=== PATIENT | female | born 1995 | race Caucasian/White ===

== ENCOUNTER 2023-06-05 09:25 | Emergency (ER) | payer OTHER, SELFPAY ==
[2023-06-05 09:33] VITALS: BP 121/99; PULSE 76; RESP 18; TEMP 37.1; O2SAT 99; BMI 42.0
--- NOTE | 2023-06-05 09:50 | ED.GENADUL1 ---
HPI - General Adult General Chief complaint: Dizziness Stated complaint: HEADACHE/SORE THROAT/DIZZINESS Time Seen by Provider: 06/05/23 09:35 Source: patient Mode of arrival: walk-in Limitations: no limitations History of Present Illness HPI narrative: The patient presented to us with a sore throat associated with runny nose a frontal headache and nausea and also cough She is presenting to us with her also has similar symptoms the patient already had a COVID test negative at home Related Data Home Medications Medication Instructions Recorded Confirmed hyoscyamine sulfate 0.125 mg 0.125 mg PO Q6H 06/05/23 06/05/23 sublingual tablet Allergies Allergy/AdvReac Type Severity Reaction Status Date / Time No Known Drug Allergies Allergy Verified 06/05/23 09:33 Review of Systems ROS Status of ROS 10 or more systems reviewed and unremarkable except as noted in history and below PFSH PFS Social History Smoking status: Never smoker Exam Narrative Exam Narrative: Nurses notes and vital signs reviewed and patient is not hypoxic. General: Well-appearing and in no apparent distress. Skin: Warm, dry, no pallor noted. No rash. Head: Normocephalic, atraumatic. Neck: Supple, non-tender. Eye: Pupils are equal, round and EOMI. No scleral icterus. Ears, Nose, Mouth, and Throat: TM are clear, no nasal mucosal hypertrophy. Oral mucosa is moist, no posterior oropharynx erythema, uvula is mid-line Cardiovascular: Regular Rate and Rhythm without murmur, gallop or rub. Respiratory: No accessory muscle use or respiratory distress. Lungs are clear to auscultation, no wheezing, rales or rhonchi Chest Wall: no tenderness Back: No midline thoracic or lumbar vertebral tenderness. No CVA tenderness Musculoskeletal: normal ROM, no calf or popliteal tenderness, no lower extremity edema/swelling GI: Abdomen is soft, non-distended. Normal bowel sounds. No masses appreciated. No tenderness to palpation. No rebound, guarding, or rigidity noted. Neurological: A&O x4. No cranial nerve dysfunction observed. No truncal ataxia. Moves all extremities. Sensation intact. Psychiatric: Cooperative and interactive. Normal mood and affect. Constitutional Vital Signs, click to edit/add: Last Vital Signs Temp 98.7 F 06/05/23 09:33 Pulse 76 06/05/23 09:33 Resp 18 06/05/23 09:33 BP 121/99 H 06/05/23 09:33 Pulse Ox 99 06/05/23 09:33 O2 Del Method Room Air 06/05/23 09:33 Course Vital Signs Vital signs: Vital Signs Temperature 98.7 F 06/05/23 09:33 Pulse Rate 76 06/05/23 09:33 Respiratory Rate 18 06/05/23 09:33 Blood Pressure 121/99 H 06/05/23 09:33 Pulse Oximetry 99 06/05/23 09:33 Oxygen Delivery Method Room Air 06/05/23 09:33 Temperature 98.7 F 06/05/23 09:33 Pulse Rate 76 06/05/23 09:33 Respiratory Rate 18 06/05/23 09:33 Blood Pressure 121/99 H 06/05/23 09:33 Pulse Oximetry 99 06/05/23 09:33 Oxygen Delivery Method Room Air 06/05/23 09:33 Medical Decision Making MDM Narrative Medical decision making narrative: Strep test is negative right now the patient will be discharged home with supportive care The patient is to follow up with primary care physician in next 2-3 days or to return to the emergency department should any of the signs or symptoms worsen or new symptoms develop. The patient agrees with the following Diagnosis and Treatment plan and the patient will be discharged home. Lab Data Labs: Lab Results 06/05/23 Range/Units 09:38 Streptococcus Screen Negative Discharge Plan Discharge Chief Complaint: Dizziness Clinical Impression: Acute viral syndrome, Acute viral pharyngitis Patient Disposition: Home, Self-Care Time of Disposition Decision: 10:00 Condition: Good Prescriptions / Home Meds: No Action hyoscyamine sulfate 0.125 mg tablet, sublingual 0.125 mg PO Q6H Instructions: Viral Syndrome (ED) Stand Alone Forms: Portal Instructions Referrals: Physician,Non-Staff, MD [Primary Care Provider] - 1 week
[2023-06-05 09:53] LABS: Internal Control Within Normal Limits; Strep A Antigen Screen Negative
[2023-06-05] MEDS: ONDANSETRON 4 MG RAPDIS TABLET SL (10:05)
== END 2023-06-05 10:07 | disposition home or self-care (01) ==
PROVIDERS: Emergency Provider Emergency Medicine
DX: J02.9 Acute pharyngitis, unspecified (principal); B34.9 Viral infection, unspecified; Z79.899 Other long term (current) drug therapy
CPT/HCPCS: 87070; 87880; 99283

== ENCOUNTER 2023-10-10 14:12 | Emergency (ER) | payer OTHER, SELFPAY ==
[2023-10-10 14:19] VITALS: BP 110/73; PULSE 108; RESP 18; TEMP 36.6; O2SAT 96; BMI 39.2
--- NOTE | 2023-10-10 14:24 | ED.GENADUL1 ---
HPI - General Adult General Chief complaint: Extremity Injury, Lower Stated complaint: LOWER EXTREMITY PAIN Time Seen by Provider: 10/10/23 14:21 Source: patient Mode of arrival: walk-in Limitations: no limitations History of Present Illness HPI narrative: 27-year-old female presents with chief complaint left foot and ankle pain. Patient states she tripped down several steps 3 days ago. No other injury or trauma. She states over the last couple days she has had swelling and difficulty with ambulation. Soft tissue swelling lateral aspect of the ankle. Extremities neurovascularly intact. Denies previous fracture to this extremity Related Data Home Medications Medication Instructions Recorded Confirmed hyoscyamine sulfate 0.125 mg 0.125 mg PO Q6H 06/05/23 06/05/23 sublingual tablet Previous Rx's Medication Instructions Recorded naproxen 500 mg tablet (Naprosyn) 500 mg PO BID PRN pain #14 tabs 10/10/23 Allergies Allergy/AdvReac Type Severity Reaction Status Date / Time No Known Drug Allergies Allergy Verified 10/10/23 14:18 Review of Systems ROS Narrative All Systems are negative except as noted/marked. PFSH PFSH Social History Smoking status: Never smoker Exam Narrative Exam Narrative: Nurses note and vital signs reviewed and patient is not hypoxic. General: The patient appears well and in no apparent distress. Patient is resting comfortably on cart. Skin: Warm, dry, no pallor noted. There is no rash noted. Head: Normocephalic, atraumatic Musculoskeletal: left lateral malleolar tenderness with swelling, neurovascularly intact. no obvious dislocation. The patient has no evidence of calf tenderness, no pitting edema, symmetrical pulses noted bilaterally Neurological: A&O x4, normal speech Psychiatric: Cooperative Constitutional Vital Signs, click to edit/add: Last Vital Signs Temp 98 F 10/10/23 14:19 Pulse 83 10/10/23 15:30 Resp 14 10/10/23 15:30 BP 110/73 10/10/23 14:19 Pulse Ox 97 10/10/23 15:30 O2 Del Method Room Air 10/10/23 15:30 Course Vital Signs Vital signs: Vital Signs Temperature 98 F 10/10/23 14:19 Pulse Rate 108 H 10/10/23 14:19 Respiratory Rate 18 10/10/23 14:19 Blood Pressure 110/73 10/10/23 14:19 Pulse Oximetry 96 10/10/23 14:19 Oxygen Delivery Method Room Air 10/10/23 14:19 Temperature 98 F 10/10/23 14:19 Pulse Rate 83 10/10/23 15:30 Respiratory Rate 14 10/10/23 15:30 Blood Pressure 110/73 10/10/23 14:19 Pulse Oximetry 97 10/10/23 15:30 Oxygen Delivery Method Room Air 10/10/23 15:30 Medical Decision Making MDM Narrative Medical decision making narrative: 27 year old Female presented here with chief complaint of twisting her ankle 3 days ago. X-ray shows no acute deformity or fracture as read by radiology. Patient Discharged home she request crutches. She will follow-up with Dr. rhoades on Friday at 9:30 AM. Prescription for Naprosyn is provided. Patient agrees with plan of care. Differential Diagnosis Differential Diagnosis: ankle fracture, ankle sprain Medical Records Medical records reviewed: Yes I reviewed the patient's medical records Imaging Data ankle: Attestation: I have reviewed the pertinent imaging results. Radiologist's impression: ITS Impressions Ankle X-Ray 10/10/23 14:24 IMPRESSION: Left ankle study fails to demonstrate definite acute fracture or dislocation Follow-up as needed. Electronically authenticated by: AMANDA ROSENBERG Date: 10/10/2023 14:52 Foot X-Ray 10/10/23 14:24 IMPRESSION: Negative for fracture. Small plantar calcaneal spur. Hallux deformity great toe. Electronically authenticated by: JF PITT Date: 10/10/2023 14:55 Discharge Plan Discharge Stand Alone Forms: Portal Instructions Chief Complaint: Extremity Injury, Lower Clinical Impression: Ankle sprain and strain Patient Disposition: Home, Self-Care Time of Disposition Decision: 14:56 Condition: Good Prescriptions / Home Meds: New naproxen [Naprosyn] 500 mg tablet 500 mg PO BID PRN (Reason: pain) Qty: 14 0RF No Action hyoscyamine sulfate 0.125 mg tablet, sublingual 0.125 mg PO Q6H Instructions: Crutch Instructions (ED), P.R.I.C.E. Treatment (ED), Ankle Strain (ED) Referrals: Physician,Non-Staff, [Primary Care Provider] - 1 week Zeus Rhoades MD [Physician] - 10/10/23 3:03 pm Discharge Date/Time: 10/10/23 15:35
--- NOTE | 2023-10-10 14:24 | XR_ITS ---
The [address] [address] Patient Name: BHUMI LANE MRN: [id number] date: 1995 Sex: F Assigned Patient Location: ER Current Patient Location: ER Accession/Order Number: [id number] Exam Date: 10/10/2023 14:32 Report Date: 10/10/2023 14:52 At the request of: JENNIFER SHORE Procedure: XR ankle LT min 3V EXAM: XR ankle LT min 3V HISTORY: pain patient fell 3 days ago COMPARISON: None TECHNIQUE: 3 views of the left ankle were obtained. FINDINGS: Ankle mortise appears grossly intact. No definite acute fracture or dislocation. Small plantar calcaneal spur is noted. Mild soft tissue swelling suggested medially. XR/XR ankle LT min 3V IMPRESSION: Left ankle study fails to demonstrate definite acute fracture or dislocation Follow-up as needed. Electronically authenticated by: AMANDA ROSENBERG Date: 10/10/2023 14:52
--- NOTE | 2023-10-10 14:24 | XR_ITS ---
The [address] [address] Patient Name: BHUMI LANE MRN: [id number] date: 1995 Sex: F Assigned Patient Location: ER Current Patient Location: ED.MAIN Accession/Order Number: [id number] Exam Date: 10/10/2023 14:32 Report Date: 10/10/2023 14:55 At the request of: JENNIFER SHORE Procedure: XR foot LT min 3V EXAM: XR foot LT min 3V HISTORY: pain COMPARISON: None. TECHNIQUE: AP lateral oblique view left foot. FINDINGS: No fracture or focal bone lesion. Hallux deformity great toe without metatarsal phalangeal joint narrowing or spurring. Small plantar calcaneal spur with smooth corticated margins. Normal adjacent soft tissues. XR/XR foot LT min 3V IMPRESSION: Negative for fracture. Small plantar calcaneal spur. Hallux deformity great toe. Electronically authenticated by: JF PITT Date: 10/10/2023 14:55
[2023-10-10 15:30] VITALS: PULSE 83; RESP 14; O2SAT 97
== END 2023-10-10 15:35 | disposition home or self-care (01) ==
PROVIDERS: Emergency Provider Emergency Medicine
DX: S93.402A Sprain of unspecified ligament of left ankle, initial encounter (principal); S96.912A Strain of unspecified muscle and tendon at ankle and foot level, left foot, initial encounter; W10.9XXA Fall (on) (from) unspecified stairs and steps, initial encounter; Z79.899 Other long term (current) drug therapy
CPT/HCPCS: 73610; 73630; 99283

== ENCOUNTER 2024-07-05 11:43 | Emergency (ER) | payer BC, OTHER, SELFPAY ==
[2024-07-05 11:48] VITALS: BP 131/73; PULSE 66; TEMP 36.8; O2SAT 94; BMI 39.7
[2024-07-05 11:54] VITALS: O2SAT 96
--- NOTE | 2024-07-05 11:55 | XR_ITS ---
The [address] [address] Patient Name: BHUMI LANE MRN: [id number] date: 1995 Sex: F Assigned Patient Location: ED.MAIN Current Patient Location: ED.MAIN Accession/Order Number: [id number] Exam Date: 07/05/2024 12:03 Report Date: 07/05/2024 12:20 At the request of: PAOLA HOWARD Procedure: XR chest 1V EXAMINATION: XR chest 1V HISTORY: cough COMPARISON: No relevant comparison available. FINDINGS: LUNGS: Underexpanded lungs with patchy and strandy opacities within left lung base. VASCULATURE: No increased pulmonary vasculature. PLEURA: No pneumothorax, effusion, or pleural thickening. CARDIAC: No cardiomegaly or cardiac silhouette abnormality. MEDIASTINUM: No visible mass or adenopathy. BONES: No fracture or visible bone lesion. OTHER: Negative. XR/XR chest 1V IMPRESSION: 1. Mild-moderate left basilar infiltrates suggesting of pneumonia. Electronically authenticated by: LOAN MÉNDEZ Date: 07/05/2024 12:20
--- NOTE | 2024-07-05 11:56 | ED.URI1 ---
HPI - URI/Sore Throat General Chief Complaint: Upper Respiratory Infection Stated Complaint: cough Time Seen by Provider: 07/05/24 11:47 Source: patient Limitations: no limitations History of Present Illness HPI Narrative: 28-year-old female presents for 5-day history of cough which is mostly nonproductive. No known fever. She has not complained of chest pain or sore throat. Related Data Home Medications ?Medication ?Instructions ?Recorded ?Confirmed hyoscyamine sulfate 0.125 mg 0.125 mg PO Q6H 06/05/23 06/05/23 sublingual tablet Previous Rx's ?Medication ?Instructions ?Recorded naproxen 500 mg tablet (Naprosyn) 500 mg PO BID PRN pain #14 tabs 10/10/23 azithromycin 250 mg tablet See Rx Instructions PO .COMPLEX #6 07/05/24 (Zithromax Z-Kaushal) tabs Allergies Allergy/AdvReac Type Severity Reaction Status Date / Time No Known Drug Allergies Allergy Verified 10/10/23 14:18 Review of Systems ROS Narrative A ten point review of systems is negative except as noted above. PFSH PFSH Social History Smoking status: Never smoker Little interest or pleasure in doing things: not at all Feeling down, depressed, or hopeless: not at all Exam Narrative Exam Narrative: Nurses note and vital signs reviewed and patient is not hypoxic. General: The patient appears well and in no apparent distress. Patient is resting comfortably on cart. Skin: Warm, dry, no pallor noted. There is no rash noted. Head: Normocephalic, atraumatic Eye: Normal conjunctiva, no drainage Ears, Nose, Mouth, and Throat: oral mucosa is moist. Nares patent. Cardiovascular: Regular Rate and Rhythm Respiratory: Patient is in no distress, no accessory muscle use, lungs are clear to auscultation, no wheezing, rales or rhonchi Back: non-tender GI: Soft and nontender Musculoskeletal: The patient has no evidence of calf tenderness, no pitting edema, symmetrical pulses noted bilaterally Neurological: A&O, normal speech Psychiatric: Cooperative Constitutional Vital Signs, click to edit/add: Last Vital Signs Temp 98.2 F 07/05/24 11:48 Pulse 66 07/05/24 11:48 Resp 18 07/05/24 11:48 BP 131/73 07/05/24 11:48 Pulse Ox 96 07/05/24 11:54 O2 Del Method Room Air 07/05/24 11:54 Course Vital Signs Vital signs: Vital Signs Temperature 98.2 F 07/05/24 11:48 Pulse Rate 66 07/05/24 11:48 Respiratory Rate 18 07/05/24 11:48 Blood Pressure 131/73 07/05/24 11:48 Pulse Oximetry 94 L 07/05/24 11:48 Oxygen Delivery Method Room Air 07/05/24 11:48 Temperature 98.2 F 07/05/24 11:48 Pulse Rate 66 07/05/24 11:48 Respiratory Rate 18 07/05/24 11:48 Blood Pressure 131/73 07/05/24 11:48 Pulse Oximetry 96 07/05/24 11:54 Oxygen Delivery Method Room Air 07/05/24 11:54 MDM - URI/Sore Throat MDM Narrative Medical decision making narrative: COVID and influenza test are negative. Chest x-ray per radiologist shows an infiltrate and she is prescribed Zithromax. Treatment diagnosis and follow-up were discussed with the patient. Differential Diagnosis Differential diagnosis: Likely upper respiratory infection, viral infection, influenza and other (COVID, pneumonia) Lab Data Attestation: I reviewed the patient's lab results. Labs: Lab Results 07/05/24 Range/Units 12:00 Influenza Type A Ag Negative Influenza Type B Ag Negative SARS-CoV-2 Ag (CV2AG) Negative (NEGATIVE) Imaging Data Chest x-ray: Radiologist's impression: ITS Impressions Chest X-Ray 07/05/24 11:55 IMPRESSION: 1. Mild-moderate left basilar infiltrates suggesting of pneumonia. Electronically authenticated by: LOAN MÉNDEZ Date: 07/05/2024 12:20 Discharge Plan Discharge Chief Complaint: Upper Respiratory Infection Clinical Impression: Pneumonia Patient Disposition: Home, Self-Care Time of Disposition Decision: 12:31 Condition: Good Mode of Transportation: Private Vehicle Prescriptions / Home Meds: New azithromycin [Zithromax Z-Kaushal] 250 mg tablet See Rx Instructions .ROUTE .COMPLEX Qty: 6 0RF Rx Instructions: For 250 mg dose pack: take 500 mg today (day 1), then 250 mg for 4 days (days 2-5) No Action hyoscyamine sulfate 0.125 mg tablet, sublingual 0.125 mg PO Q6H naproxen [Naprosyn] 500 mg tablet 500 mg PO BID PRN (Reason: pain) Qty: 14 0RF Print Language: Peruvian Instructions: Community Acquired Pneumonia (ED) Referrals: Natasha Jerome NP [Primary Care Provider] - 1 week
--- OUTSIDE RECORDS SUMMARY | 2024-07-05 12:02 | XMS_ITS | CCD ---
Author Organization [facility] Care Team Providers Care Rn Provider Relations Name Role Phone DEMETRICE BLAKE Attending Unavailable DEMETRICE BLAKE Admitting Unavailable Ann Marie Nava Unavailable Kacie Almazan Unavailable Shayy Jerome Primary Care Provider [phone] [facility] Dilia Dorado Emergency Provider SHAYY JEROME Primary Care Unavailable GIBRAN ZUNIGA Attending UnavailKACIE Alvarez Attending Unavailable KACIE CARRASCO Referring Unavailable SHAYY JEROME Primary Care Unavailable Dilia Estrada Attending Unavailable Dilia Estrada Admitting Unavailable Justus Shayy L Primary Care Unavailable Justus FOUR H AGENT-Shayy ASCENCIO Primary Care Provider U SHAYY Oglesby Referring Unavailable SHAYY JEROME Primary Care Unavailable DANA FUENTES Attending Unavailable SHAYY JEROME Referring Unavailable SHAYY JEROME Primary Care Unavailable MODE SIFUENTES Attending Unavailable Allergies Allergy Classification Reported Allergen(s) Allergy Type Date of Onset Reaction(s) Facility (5 sources) Naproxen; Translations: [NAPROXEN] Drug Allergy 10-20-2023 Itching [facility] Repository Medications Current Medications Medication Drug Class(es) Dates Sig (Normalized) Sig (Original) methylPREDNISolone 4 mg oral tablet (1 source) Corticosteroid Start: 3 methylPREDNISolone 4 MG as directed Orally for daily dose take half with breakfast, half with dinner for 6 days Oct, Active predniSONE 20 mg oral tablet (1 source) Start: 2 take 1 tablet by mouth every twelve hours predniSONE 20 MG 1 tablet Orally 2 times a day for 5 day(s) Feb, Active rivaroxaban 20 mg oral tablet (5 sources) Factor Xa Inhibitor Start: take 1 tablet by mouth once daily at dinner Rivaroxaban (Xarelto) 20 mg tablet Active 20 MG PO Daily 90 November 13, 2023 12:00am must administer with evening meal Start: 10-20-2023 take 1 tablet by tracy th twice daily at mealtime Rivaroxaban (Xarelto Dvt-Pe Treat 30d Start) 15 mg (42)- 20 mg (9) tablets,dose pack Active 0 PO .COMPLEX 51 October 20, 2023 12:00am take one-15 mg tablet twice daily for 21 days, then one-20 mg tablet once daily; must take with meal/food take 1 tablet by tracy th in the morning, then take 1 tablet by mouth at mealtime rivaroxaban (XARELTO) 15 mg tablet Take 1 tablet (15 mg total) by mouth in the morning and 1 tablet (15 mg total) in the evening. Take with meals. Active Problems Active Problems Problem Classification Problem Date Documented Da te Episodic/Chronic Immunizations and screening for infectious disease (2 sources) Patient encounter status; Translations: [Encounter for screening for respiratory tuberculosis] 06-10-2024 Episodic Nonspecific chest pain (1 source) Chest pain, unspecified; Translations: [Chest pain, unspecified] Onset: 10-22-2023 Episodic Other connective tissue disease (1 source) Pain in left leg; Translations: [Pain in left leg] Onset: 10-20-2023 Episodic Phlebitis; thrombophlebitis and thromboembolism (2 sources) Deep venous thrombosis; Translations: [Acute embolism and thrombosis of unspecified deep veins of unspecified lower extremity] 10-20-2023 Episodic Spondylosis; intervertebral disc disorders; other back problems (2 sources) Dorsalgia, unspecified; Translations: [Backache] Onset: 10-22-2023 Episodic Sprains and strains (1 source) Strain of muscle, fascia and tendon at neck level, initial encounter Episodic Unclassified (1 source) Pain With Breathing Onset: 10-22-2023 Unclassified (1 source) high back pain, has blood clot Onset: 10-22-2023 Unclassified (1 source) TB Test Onset: 06-12-2024 Past or Other Problems Problem Classification Problem Date Documented Da te Episodic/Chronic Other connective tissue disease (1 source) 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 Resolved: 02-27-2022 Episodic Results Test Name Value Interpretation Reference Range Facil ity CBC AND AUTO DIFFon 10-22-19 ABSOLUTE BASOPHIL 0.1 X10E9/L Normal 0.0-0.2 [facility] Comment on above: Performed By: #### C BCA, PINR, 41950-7, CMP, 13802-2 #### [facility] ([id number]) [address] [place] [address] 32714 ABSOLUTE NEUTROPHIL 5.0 X10E9/L Normal 1.5-6.6 [facility] Comment on above: Performed By: #### Dottie BCA, PINR, 53105-2, CMP, 38265-9 #### [facility] ([id number]) [address] [place] [address] 35580 Basophils/100 WBC (Bld) 1.2 % Normal [facility] Comment on above: Performed By: #### Dottie BCA, PINR, 23320-3, CMP, 33091-9 #### [facility] ([id number]) [address] [place] [address] 00899 Eosinophils (Bld) [#/Vol] 0.3 10*3/uL Normal 0.0-0.4 [facility] Comment on above: Performed By: #### Dottie BCA, PINR, 41091-9, CMP, 75395-4 #### [facility] ([id number]) [address] [place] [address] 63505 Eosinophils/100 WBC (Bld) 3.4 % Normal [facility] Comment on above: Performed By: #### Dottie BCA, PINR, 19125-1, CMP, 06509-7 #### [facility] ([id number]) [address] [place] [address] 80154 Erythrocyte distribution width (RBC) [Ratio] 14.7 % Normal 11.5-15.0 [facility] Comment on above: Performed By: #### C BCA, PINR, 53130-6, CMP, 01310-7 #### [facility] ([id number]) [address] [place] [address] 86699 Hematocrit (Bld) [Volume fraction] 37.6 % Normal 35-47 [facility] Comment on above: Performed By: #### Dottie AGRAWAL, PINR, 74105-5, CMP, 10576-0 #### [facility] ([id number]) [address] [place] [address] 33332 Hemoglobin (Bld) [Mass/Vol] 12.5 g/dL Normal 11.7-15.5 [facility] Comment on above: Performed By: #### Dottie AGRAWAL, PINR, 10032-5, CMP, 85780-9 #### [facility] ([id number]) [address] [place] [address] 19467 Lymphocytes (Bld) [#/Vol] 2.2 10*3/uL Normal 1.0-3.5 [facility] Comment on above: Performed By: #### Dottie AGRAWAL, PINR, 86568-9, CMP, 66696-0 #### [facility] ([id number]) [address] [place] [address] 69135 Lymphocytes/100 WBC (Bld) 26.1 % Normal [facility] Comment on above: Performed By: #### Dottie BCA, PINR, 67278-4, CMP, 84791-3 #### [facility] ([id number]) [address] [place] [address] 97855 MCH (RBC) [Entitic mass] 27.6 pg Normal 27-34 [facility] Comment on above: Performed By: #### Dottie BCA, PINR, 05046-5, CMP, 97813-5 #### [facility] ([id number]) [address] [place] [address] 47185 MCHC (RBC) [Mass/Vol] 33.4 g/dL Normal 32-36 [facility] Comment on above: Performed By: #### C BCA, PINR, 84424-4, CMP, 85203-5 #### [facility] ([id number]) [address] [place] [address] 12859 MCV (RBC) [Entitic vol] 83 fL Normal 80-100 [facility] Comment on above: Performed By: #### Dottie BCA, PINR, 93463-9, CMP, 11563-5 #### [facility] ([id number]) [address] [place] [address] 35794 Monocytes (Bld) [#/Vol] 0.7 10*3/uL Normal 0-0.9 [facility] Comment on above: Performed By: #### Dottie BCA, PINR, 85860-8, CMP, 37131-0 #### [facility] ([id number]) [address] [place] [address] 61101 Monocytes/100 WBC (Bld) 8.9 % Normal [facility] Comment on above: Performed By: #### Dottie BCA, PINR, 30618-5, CMP, 93157-8 #### [facility] ([id number]) [address] [place] [address] 20781 Neutrophils/100 WBC (Bld) 60.4 % Normal [facility] Comment on above: Performed By: #### Dottie BCA, PINR, 82024-7, CMP, 18225-9 #### [facility] ([id number]) [address] [place] [address] 19762 Platelet mean volume (Bld) [Entitic vol] 10.4 fL Normal 7-12 [facility] Comment on above: Performed By: #### Dottie BCA, PINR, 13337-4, CMP, 16682-9 #### [facility] ([id number]) [address] [place] [address] 30755 Platelets (Bld) [#/Vol] 329 10*3/uL Normal 150-450 [facility] Comment on above: Performed By: #### C BCA, PINR, 56161-5, CMP, 44953-0 #### [facility] ([id number]) [address] [place] [address] 89053 RBC COUNT 4.54 X10E12/L Normal 3.80-5.20 [facility] Comment on above: Performed By: #### C BCA, PINR, 42446-0, CMP, 59056-6 #### [facility] ([id number]) [address] [place] [address] 61121 WBC (Bld) [#/Vol] 8.3 10*3/uL Normal 4.0-11.0 [facility] Comment on above: Performed By: #### C BCA, PINR, 91563-0, CMP, 00081-0 #### [facility] ([id number]) [address] [place] [address] 09710 COMPREHENSIVE METABOLIC PANE [place] 10-22-2023 Albumin [Mass/Vol] 4.2 g/dL Normal 3.2-5.3 [facility] Comment on above: Performed By: #### C BCA, PINR, 28824-6, CMP, 44573-2 #### [facility] ([id number]) [address] [place] [address] 48510 ALP [Catalytic activity/Vol] 84 U/L Normal 39-130 [facility] Comment on above: Performed By: #### C BCA, PINR, 83199-4, CMP, 49811-8 #### [facility] ([id number]) [address] [place] [address] 70602 ALT [Catalytic activity/Vol] 62 U/L High 0-31 [facility] Comment on above: Performed By: #### C BCA, PINR, 67752-0, CMP, 91081-8 #### [facility] ([id number]) [address] [place] [address] 67083 Anion gap [Moles/Vol] 6 mmol/L Normal 5-15 [facility] Comment on above: Performed By: #### C BCA, PINR, 45518-3, CMP, 20167-6 #### [facility] ([id number]) [address] [place] [address] 60585 AST [Catalytic activity/Vol] 38 U/L Normal 0-41 [facility] Comment on above: Performed By: #### C BCA, PINR, 69194-2, CMP, 96700-0 #### [facility] ([id number]) [address] [place] [address] 83395 Bilirubin [Mass/Vol] 0.8 mg/dL Normal 0.3-1.2 [facility] Comment on above: Performed By: #### C BCA, PINR, 28815-8, CMP, 39418-2 #### [facility] ([id number]) [address] [place] [address] 32956 Calcium [Mass/Vol] 8.8 mg/dL Normal 8.5-10.5 [facility] Comment on above: Performed By: #### C BCA, PINR, 96091-9, CMP, 85132-3 #### [facility] ([id number]) [address] [place] [address] 34498 Chloride [Moles/Vol] 107 mmol/L Normal 98-109 [facility] Comment on above: Performed By: #### C BCA, PINR, 23710-3, CMP, 52292-5 #### [facility] ([id number]) [address] [place] [address] 00710 CO2 [Moles/Vol] 22 mmol/L Normal 22-32 [facility] Comment on above: Performed By: #### C BCA, PINR, 95449-9, CMP, 31611-2 #### [facility] ([id number]) [address] [place] [address] 86807 Creatinine [Mass/Vol] 0.59 mg/dL Normal 0.40-1.00 [facility] Comment on above: Result Comment: METH OD TRACEABLE TO IDMS STANDARD Performed By: #### C BCA, PINR, 41087-5, CMP, 38333-8 #### [facility] ([id number]) [address] [place] [address] 05717 eGFR (CKD-EPI) NON-RACE DEPENDENT >90 Normal >59 [facility] Comment on above: Result Comment: Reported eGFR is based on the CKD-EPI 2020 equation that does not use a race coefficient. Performed By: #### C BCA, PINR, 12515-5, CMP, 64874-3 #### [facility] ([id number]) [address] [place] [address] 85990 Glucose [Mass/Vol] 98 mg/dL Normal 65-99 [facility] Comment on above: Performed By: #### C BCA, PINR, 61107-3, CMP, 07729-5 #### [facility] ([id number]) [address] [place] [address] 32131 Potassium [Moles/Vol] 3.8 mmol/L Normal 3.5-5.0 [facility] Comment on above: Performed By: #### C BCA, PINR, 60809-2, CMP, 89778-3 #### [facility] ([id number]) [address] [place] [address] 73421 Protein [Mass/Vol] 8.1 g/dL High 6.0-8.0 [facility] Comment on above: Performed By: #### C BCA, PINR, 73650-4, CMP, 61682-3 #### [facility] ([id number]) [address] [place] [address] 67940 Sodium [Moles/Vol] 135 mmol/L Normal 134-146 [facility] Comment on above: Performed By: #### C BCA, PINR, 12353-9, CMP, 19165-4 #### [facility] ([id number]) [address] [place] [address] 90219 Urea nitrogen [Mass/Vol] 10 mg/dL Normal 5-23 [facility] Comment on above: Performed By: #### C BCA, PINR, 71747-2, CMP, 51334-3 #### [facility] ([id number]) [address] [place] [address] CTA CHESTon 10-22-[address] CTA CHEST History: Pulmonary embolism (PE) suspected, high prob Shortness of breath. Procedure: Multidetector CT thoracic Angiogram performed with IV contrast without complication, including 3 -D Maximum intensity projection reconstructions constructed under concurrent physician supervision on a independent workstation to optimize vascular assessment. Automated exposure control was utilized. Findings: 3D reformatted images confirm the source data findings. No thrombi identified within first or second order branches of the pulmonary arteries. Mediastinum and mara show no acute findings. lungs demonstrate no acute findings Impression: * No central pulmonary emboli identified. * No acute disease. All CT scans at this facility use dose modulation, iterative reconstruction, and/or weight based dosing when appropriate to reduce radiation dose to as low as reasonably achievable. Finalized by Wong Flaherty MD on 10/22/2023 7:37 PM Normal [facility] HCG ( test) Ql (U)o n 10-22-2023 Beta HCG ( test) Ql (U) Negative Normal NEG [facility] Comment on above: Performed By: #### 2 106-3 #### [facility] ([id number]) [address] [place] [address] 76938 PROTIME AND INRon 10-22-2023 INR Coag (PPP) [Relative time] 1.6 {INR} High 0.8-1.1 [facility] Comment on above: Performed By: #### C BCA, PINR, 94184-4, CMP, 11144-4 #### [facility] ([id number]) [address] [place] [address] 54062 PT Coag (PPP) [Time] 18.5 s High 9.8-13.2 [facility] Comment on above: Result Comment: NEW REFERENCE RANGE Performed By: #### C BCA, PINR, 19457-3, CMP, 74774-8 #### [facility] ([id number]) [address] [place] [address] 46055 TROPONIN Ion 10-22-2023 Troponin I.cardiac [Mass/Vol] ng/mL Normal 0.00-0.04 [facility] Comment on above: Performed By: #### C BCA, PINR, 55774-2, CMP, 71554-0 #### [facility] ([id number]) [address] [place] [address] 81058 aPTT Coag (PPP) [Time]on aPTT Coag (Bld) [Time] 39 s High 26-37 [facility] Comment on above: Result Comment: NEW REFERENCE RANGE Performed By: #### C BCA, PINR, 47344-7, CMP, 78339-3 #### [facility] ([id number]) [address] [place] [address] 06480 US venous duplex LE LTon US venous duplex LE LT [place] [address] Ultrasound Report Signed Patient: Bhumi Lowery MR#: [id number] [birth year] : 1995 Acct:[id number] Age/Sex: 27 / F ADM Date: 10/20/23 Loc: ER Room: Type: [facility] ER Attending Dr: Ordering Provider: HERBERT White Date of Service: 10/20/23 US/US venous duplex LE LT: calf pain and swelling Copies to: HERBERT White Left lower extremity venous duplex evaluation INDICATIONS: Left leg pain and tenderness with pain. FINDINGS: Left lower extremity: Compression was abnormal to location of the left gastrocnemius vein. This is considered a deep vein. The remainder the veins were normal in the left lower extremity. US/US venous duplex LE LT IMPRESSION: Positive study for DVT in the left gastrocnemius vein. Impression dictated by: Connor Barragan MD10/21/2023 4:32 PM Dictation Location: [place] [address] Tech: Mattie Julieta Transcribed By: PWS 10/21/23 1632 Dictated By: Connor Barragan MD 10/21/23 1631 Signed By: 10/21/23 1632 [facility] XR tibia fibula LT 2V*on XR tibia fibula LT 2V* [place] [address] XRay Report Signed Patient: Bhumi Lowery MR#: [id number] [birth year] : 1995 Acct:[id number] Age/Sex: 27 / F ADM Date: 10/20/23 Loc: ER Room: Type: [facility] ER Attending Dr: Copies to: HERBERT White Ordering Provider: HERBERT White Date of Service: 10/20/23 XR/XR tibia fibula LT 2V*: Extremity Injury, Lower 2 views left tibia and fibula plain film HISTORY: Left ankle injury a few weeks ago. Continued pain. COMPARISON: None ACUTE FINDINGS: None DEGENERATIVE CHANGE: Unremarkable SOFT TISSUE FINDINGS: Unremarkable JOINT EFFUSION: None POSTOP CHANGES: None BONE MINERALIZATION: Adequate XR/XR tibia fibula LT 2V* IMPRESSION: No acute bony findings. Impression dictated by: Eliseo Aldridge M.D.10/20/2023 1:01 PM Dictation Location: [place] [address] Transcribed By: [facility] 10/20/23 1301 Dictated By: Eliseo Aldridge DO 10/20/23 1301 Signed By: 10/20/23 1301 [facility] Ambulatory Visit Summaryon 0 09-16-2021 Ambulatory Visit Summary BHUMI LOWERY :1995 Visit Date:09/16/2021 Ambulatory Visit Instructions Your Diagnosis Influenza A Fever BMI 37.0-37.9, adult Your Care Team Attending Physician - Ryann LONGORIA CNP Primary Care Physician - Shayy Jerome CNP This Is Your Medications List oseltamivir (Tamiflu 75 mg Cap) Contact prescribing physician if questions or concerns multivitamin, ( Multivitamins) polycarbophil (Fiber Tabs) Procedures Performed section, Colonoscopy. Discharge Vitals Temperature (Oral) 37.3 ?C Heart Rate (Peripheral) 95 Blood Pressure 116/78 Height 170.0 cm Height 170 cm Weight 108.6 kg Weight 108.6 kg BMI 37.58 What to do next You Need to Schedule the Following Appointments Follow Up with Shayy Jerome CNP When: Where: [address] [place] [address], [address] [place] [address]- Medications What How Much When Instructions New oseltamivir (Tamiflu 75 mg Cap) 1 Capsules By Mouth 2 times a day Duration: 5 Days Pickup at [facility]/pharmacy #[id number] Unchanged multivitamin, ( Multivitamins) 1 Tablets By Mouth Every day Contact prescribing physician if questions or concerns Unchanged polycarbophil (Fiber Tabs) Contact prescribing physician if questions or concerns Pharmacy Information [facility]/pharmacy #[id number]: [address] [place], [place] [id number] [phone] Allergies No Known Allergies Problems Ongoing - Any problem that you are currently receiving treatment for. Anxiety Back pain, chronic Hemorrhoids Historical - Any problem that you are no longer receiving treatment for. Anemia IBS - Irritable bowel syndrome Education [employer] Influenza, Adult Influenza, more commonly known as the flu, is a viral infection that mainly affects the respiratory tract. The respiratory tract includes organs that help you breathe, such as the lungs, nose, and throat. The flu causes many symptoms similar to the common cold along with high fever and body aches. The flu spreads easily from person to person (is contagious). Getting a flu shot (influenza vaccination) every year is the best way to prevent the flu. What are the causes? This condition is caused by the influenza virus. You can get the virus by: ? Breathing in droplets that are in the air from an infected person's cough or sneeze. ? Touching something that has been exposed to the virus (has been contaminated) and then touching your mouth, nose, or eyes. What increases the risk? The following factors may make you more likely to get the flu: ? Not washing or sanitizing your hands often. ? Having close contact with many people during cold and flu season. ? Touching your mouth, eyes, or nose without first washing or sanitizing your hands. ? Not getting a yearly (annual) flu shot. You may have a higher risk for the flu, including serious problems such as a lung infection (pneumonia), if you: ? Are older than 65. ? Are . ? Have a weakened disease-fighting system (immune system). You may have a weakened immune system if you: ? Have HIV or AIDS. ? Are undergoing chemotherapy. ? Are taking medicines that reduce (suppress) the activity of your immune system. ? Have a long-term (chronic) illness, such as heart disease, kidney disease, diabetes, or lung disease. ? Have a liver disorder. ? Are severely overweight (morbidly obese). ? Have anemia. This is a condition that affects your red blood cells. ? Have asthma. What are the signs or symptoms? Symptoms of this condition usually begin suddenly and last 4?14 days. They may include: ? Fever and chills. ? Headaches, body aches, or muscle aches. ? Sore throat. ? Cough. ? Runny or stuffy (congested) nose. ? Chest discomfort. ? Poor appetite. ? Weakness or fatigue. ? Dizziness. ? Nausea or vomiting. How is this diagnosed? This condition may be diagnosed based on: ? Your symptoms and medical history. ? A physical exam. ? Swabbing your nose or throat and testing the fluid for the influenza virus. How is this treated? If the flu is diagnosed early, you can be treated with medicine that can help reduce how severe the illness is and how long it lasts (antiviral medicine). This may be given by mouth (orally) or through an IV. Taking care of yourself at home can help relieve symptoms. Your health care provider may recommend: ? Taking tuxj-ybg-wiepitu medicines. ? Drinking plenty of fluids. In many cases, the flu goes away on its own. If you have severe symptoms or complications, you may be treated in a hospital. Follow these instructions at home: Activity ? Rest as needed and get plenty of sleep. ? Stay home from work or school as told by your health care provider. Unless you are visiting your health care provider, avoid leaving home until your fever has been gone for 24 h (more content not included)... Normal [facility] Family Medicine Office/Clini c Noteon 09-16-2021 Family Medicine Office/Clinic Note Chief Complaint EST lingering covid symptoms HPI Staff Patient 25 yo female presents with lingering covid symptoms Pt had COVID 08/28, went back to work for 1 wk and symptoms worsened Symptoms started- yesterday Headache- yes Body aches- yes Earache- yes Runny/stuffy nose- yes both Problem with Smell- no Problem with Taste- no Sore throat- yes Cough- yes Scratchy tickly throat- no Chest symptoms- pain when coughing SCHULER- yes with cough Orthopnea-no Lung Hx asthma, bronchitis, chest colds- no Fever/chills- fever- 101.1, chills GI symptoms- nausea, vomiting COVID exposure- no vaccinated- x's 2 Treatment- mucinex, tylenol Pt having right side pain History of Present Illness I have reviewed and verified the staff HPI to be accurate for this encounter. Patient presents in office for concern of body aches, headache, rhinorrhea, nasal congestion, sore throat, cough. Symptoms x1 day. States she had fever of 101.1 at home, chills. Complains of nausea and vomiting. Denies known Covid exposure. Patient had Covid less than 1 month ago, though symptoms had resolved. Patient is COVID vaccinated x2. Has been using Mucinex and Tylenol with minimal improvement. Last dose of Tylenol, 6.5 hours ago. Has also had flu vaccine. Review of Systems PHQ Score Initial Depression Screen Score: 0 Fatigue: yes Body aches: yes Chills: yes Fever: yes- 101.1 at home BADALLA: yes Nasal congestion: yes Rhinorrhea: yes Cough: yes, productive SOB: no Wheezing: no Sore throat: yes Ear pain: yes, left ear Ear drainage: no Loss of taste or smell: no Nausea: yes Vomiting: yes Diarrhea: no Physical Exam Vitals & Measurements T: 37.3 ?C(Oral) HR: 95(Peripheral) BP: 116/78 SpO2: 98% HT: 170.0 cm HT: 170 cm WT: 108.6 kg WT: 108.6 kg BMI: 37.58 General: Overweight, pleasant adult female in no acute distress Ears: No deformity or lesion of external ear. Canals and TM appear normal bilaterally. TM?s intact, not inflamed, with normal light reflex. Hearing grossly normal to conversational speech, mild clear effusion posterior to left TM Nose: moderate nasal mucosa inflammation and edema, scant clear rhinorrhea Mouth: Mucous membranes moist. Normal oropharynx, and posterior pharynx without lesions or exudates. Tongue normal, mild pharyngeal erythema, 1+ tonsils Neck: no adenopathy Lungs: clear to auscultation throughout, no wheezing, no rales. No respiratory distress Cardio: regular rate and rhythm, no murmur Mental Status: Alert and oriented x3. Normal mood and affect Assessment/Plan 1. Influenza A (J10.1: Influenza due to other identified influenza virus with other respiratory manifestations) Rapid influenza test A+. Discussed viral nature of illness and typical duration- the worst (fever, body aches) is usually the first 3-5 days with cold symptoms lasting 7-14 days typically. Advised within tamiflu window. Advised of possible benefits (shortening duration of illness by about 24 hours, possibly less severe illness) vs possible risks/side effects including temporary altered mental status. Patient/parent would like RX for tamiflu- sent to pharmacy. May use mucinex DM or similar for symptomatic treatment. Fluids/rest encouraged, PRN tylenol/ibuprofen for pain/fever, may need to alternate. Follow up with PCP if not improving over next 5-7 days, sooner or ER if significantly worsening. Patient/parent verbalized understanding of tx plan. Work note given 2. Fever (R50.9: Fever, unspecified) see above plan. Influenza + Ordered: Influenza Type A&B POC 58796 3. BMI 37.0-37.9, adult (Z68.37: Body mass index [BMI] 37.0-37.9, adult) The standard range for ages 18 and older is >=18.5 and < 25 kg/m2. Your BMI today was above this range, this falls in the overweight to obese category and there are medical benefits to weight loss. We can offer counselling, referral, and/or medical support in addressing this problem. Your BMI and weight management will be followed at subsequent visits. Ordered: Body Mass Index (BMI) documented 3008F Orders: oseltamivir, 75 mg = 1 cap(s), Oral, BID, X 5 day(s), # 10 cap(s), Refills(s) 0, Pharmacy: [facility]/pharmacy #[id number], 170, cm, 09/16/21 13:22:00 EST, Height/Length Dosing, 108.6, kg, 09/16/21 13:22:00 EST, Weight Dosing Follow-up With When Contact Information Shayy Jerome CNP [address] [place] [address], [address] [place] [address]- Additional Instructions: Patient Education Influenza, Adult BMI for Adults Problem List/Past Medical History Ongoing Anxiety Back pain, chronic Hemorrhoids Historical Anemia IBS - Irritable bowel syndrome Procedure/Surgical History section, Colonoscopy. Medications Fiber Tabs Multivitamins, 1 tab(s), Oral, Daily, Not taking Tamiflu 75 mg Cap, 75 mg= 1 cap(s), Oral, BID Allergies No Known Allergies Social History Alcohol - Denies Alcohol Use, 06/03/2019 Exercise - Does not exercise (more content not included)... Normal [facility] Comment on above: Result Comment: Elec tronically Signed By: Ryann LONGORIA CNP\.br\Date and Time Signed: 09/16/21 14:19 EST Patient Educationon 09-16-19 Patient Education Infectious Disease Influenza, Adult Influenza, more commonly known as the flu, is a viral infection that mainly affects the respiratory tract. The respiratory tract includes organs that help you breathe, such as the lungs, nose, and throat. The flu causes many symptoms similar to the common cold along with high fever and body aches. The flu spreads easily from person to person (is contagious). Getting a flu shot (influenza vaccination) every year is the best way to prevent the flu. What are the causes? This condition is caused by the influenza virus. You can get the virus by: ? Breathing in droplets that are in the air from an infected person's cough or sneeze. ? Touching something that has been exposed to the virus (has been contaminated) and then touching your mouth, nose, or eyes. What increases the risk? The following factors may make you more likely to get the flu: ? Not washing or sanitizing your hands often. ? Having close contact with many people during cold and flu season. ? Touching your mouth, eyes, or nose without first washing or sanitizing your hands. ? Not getting a yearly (annual) flu shot. You may have a higher risk for the flu, including serious problems such as a lung infection (pneumonia), if you: ? Are older than 65. ? Are . ? Have a weakened disease-fighting system (immune system). You may have a weakened immune system if you: ? Have HIV or AIDS. ? Are undergoing chemotherapy. ? Are taking medicines that reduce (suppress) the activity of your immune system. ? Have a long-term (chronic) illness, such as heart disease, kidney disease, diabetes, or lung disease. ? Have a liver disorder. ? Are severely overweight (morbidly obese). ? Have anemia. This is a condition that affects your red blood cells. ? Have asthma. What are the signs or symptoms? Symptoms of this condition usually begin suddenly and last 4?14 days. They may include: ? Fever and chills. ? Headaches, body aches, or muscle aches. ? Sore throat. ? Cough. ? Runny or stuffy (congested) nose. ? Chest discomfort. ? Poor appetite. ? Weakness or fatigue. ? Dizziness. ? Nausea or vomiting. How is this diagnosed? This condition may be diagnosed based on: ? Your symptoms and medical history. ? A physical exam. ? Swabbing your nose or throat and testing the fluid for the influenza virus. How is this treated? If the flu is diagnosed early, you can be treated with medicine that can help reduce how severe the illness is and how long it lasts (antiviral medicine). This may be given by mouth (orally) or through an IV. Taking care of yourself at home can help relieve symptoms. Your health care provider may recommend: ? Taking cuqb-mvt-gciaqmz medicines. ? Drinking plenty of fluids. In many cases, the flu goes away on its own. If you have severe symptoms or complications, you may be treated in a hospital. Follow these instructions at home: Activity ? Rest as needed and get plenty of sleep. ? Stay home from work or school as told by your health care provider. Unless you are visiting your health care provider, avoid leaving home until your fever has been gone for 24 hours without taking medicine. Eating and drinking ? Take an oral rehydration solution (ORS). This is a drink that is sold at pharmacies and retail stores. ? Drink enough fluid to keep your urine pale yellow. ? Drink clear fluids in small amounts as you are able. Clear fluids include water, ice chips, diluted fruit juice, and low-calorie sports drinks. ? Eat bland, ejzo-ip-yzcqtu foods in small amounts as you are able. These foods include bananas, applesauce, rice, lean meats, toast, and crackers. ? Avoid drinking fluids that contain a lot of sugar or caffeine, such as energy drinks, regular sports drinks, and soda. ? Avoid alcohol. ? Avoid spicy or fatty foods. General instructions ? Take vlig-ykn-jtflnfu and prescription medicines only as told by your health care provider. ? Use a cool mist humidifier to add humidity to the air in your home. This can make it easier to breathe. ? Cover your mouth and nose when you cough or sneeze. ? Wash your hands with soap and water often, especially after you cough or sneeze. If soap and water are not available, use alcohol-based hand shop director. ? Keep all follow-up visits as told by your health care provider. This is important. How is this prevented? ? Get an annual flu shot. You may get the flu shot in late summer, fall, or winter. Ask your health care provider when you should get your flu shot. ? Avoid contact with people who are sick during cold and flu season. This is generally fall and winter. Contact a health care provider if: ? You develop new symptoms. ? You have: ? Chest pain. ? Diarrhea. ? A fever. ? Your cough gets worse. ? You produce more mucus. ? You feel na (more content not included)... Normal [facility] [place] [facility] [place] BHUMI LOWERY [address] [place] [phone] Please excuse BHUMI LOWERY from work . Date and/or Time of Absence: From: 09/16/21 To: 09/17/21 May return to work on: 09/18/21 as long as overall improving symptoms, fever free Restrictions: None Comments: Please excuse due to an acute illness. Provider Signature: Ryann Longoria, FOUR H AGENT-OB SCRUB TECH, SCIENTIFIC DATABASE CURATOR-C Nurse Practitioner [address] [place] [address] [place] [address] Normal [facility] Vital Signs Date Time Vital Sign Value Performing Clinician Facility 11-13-2023 10:120400 Body height 167.64 cm Shayy Jerome Work Phone: [facility] 11-13-2023 10:12-0400 Body mass index (BMI) [Ratio] 41.8 kg/m2 Shayy Jerome Work Phone: [facility] 11-13-2023 10:12-0400 Body temperature 97.7 [degF] Shayy Jerome Work Phone: [facility] 11-13-2023 10:12-0400 Body weight 117.48 kg Shayy Jerome Work Phone: [facility] 11-13-2023 10:12-0400 Diastolic blood pressure 70 mm[Hg] Shayy Jerome Work Phone: [facility] 11-13-2023 10:12-0400 Heart rate 79 /min Shayy Jerome Work Phone: [facility] 11-13-2023 10:12-0400 SaO2% (BldA) [Mass fraction] 98 % Shayy Jerome Work Phone: [facility] 11-13-2023 10:12-0400 Systolic blood pressure 124 mm[Hg] Shayy Jerome Work Phone: [facility] 10-20-2023 12:22-0400 Body height 167.64 cm Shayy Jerome Work Phone: [facility] 10-20-2023 12:22-0400 Body weight 120.3 kg Shayy Jerome Work Phone: [facility] 10-20-2023 12:20-0400 Body temperature 98.1 [degF] Shayy Jerome Work Phone: [facility] 10-20-2023 12:20-0400 Diastolic blood pressure 81 mm[Hg] Shayy Jerome Work Phone: [facility] 10-20-2023 12:20-0400 Heart rate 70 /min Shayy Jerome Work Phone: [facility] 10-20-2023 12:20-0400 Respiratory rate 20 /min Shayy Jerome Work Phone: [facility] 10-20-2023 12:20-0400 SaO2% (BldA) [Mass fraction] 98 % Shayy Jerome Work Phone: [facility] 10-20-2023 12:20-0400 Systolic blood pressure 129 mm[Hg] Shayy Jerome Work Phone: [facility] 10-25-2022 14:35-0400 Body height 170.18 cm Kacie Almazan Other [facility] 10-25-2022 14:35-0400 Body mass index (BMI) [Ratio] 41.34 kg/m2 Kacie Almazan Other [facility] 10-25-2022 14:35-0400 Body temperature 98.2 [degF] Kacie Almazan Other [facility] 10-25-2022 14:35-0400 Body weight 119.75 kg Kacie Almazan Other [facility] 10-25-2022 14:35-0400 Diastolic blood pressure 69 mm[Hg] Kacie Almazan Other [facility] 10-25-2022 14:35-0400 Respiratory rate 18 /min Kacie Almazan Other [facility] 10-25-2022 14:35-0400 SaO2% (BldA) [Mass fraction] 99 % Kacie Almazan Other [facility] Other 10-25-2022 14:35-0400 Systolic blood pressure 117 mm[Hg] Kacie Almazan Other [facility] Other 02-27-2022 17:15-0400 Body height 170.18 cm Ann Marie Nava Other [facility] Other 02-27-2022 17:15-0400 Body mass index (BMI) [Ratio] 40.72 kg/m2 Ann Marie Nava Other [facility] Other 02-27-2022 17:15-0400 Body temperature 98.1 [degF] Ann Marie Nava Other [facility] Other 02-27-2022 17:15-0400 Body weight 117.94 kg Ann Marie Cranemond Other [facility] Other 02-27-2022 17:15-0400 Diastolic blood pressure 72 mm[Hg] Ann Marie Cranemond Other [facility] Other 02-27-2022 17:15-0400 Respiratory rate 18 /min Ann Marie Cranemond Other [facility] Other 02-27-2022 17:15-0400 SaO2% (BldA) [Mass fraction] 99 % Ann Marie Cranemond Other [facility] Other 02-27-2022 17:15-0400 Systolic blood pressure 124 mm[Hg] Ann Marie Brandy Other [facility] Other Encounters Encounter Date Encounter Type Care Provider Facility Start: 06-12-2024 End: 06-12-2024 Office outpatient visit 5 minutes Mode Sifuentes FOUR H AGENT-OB SCRUB TECH Work Phone: [facility] Comment on above: Encounter for screen ing for respiratory tuberculosis (Primary Dx) Start: 06-12-2024 End: 06-12-2024 ambulatory EDEN PRAIRIE [facility] Start: 06-10-2024 End: 06-10-2024 Office outpatient visit 10 minutes Dana Fuentes FOUR H AGENT-OB SCRUB TECH Work Phone: [facility] Comment on above: Healthcare maintenan ce (Primary Dx); Encounter for PPD test Start: 06-10-2024 End: 06-10-2024 Patient encounter status Dana Fuentes FOUR H AGENT-OB SCRUB TECH Work Phone: [facility] Start: 06-10-2024 End: 06-10-2024 ambulatory [facility] Start: 06-10-2024 Encounter for genera l adult medical examination without abnormal findings DANA FUENTES [facility] Start: 11-13-2023 End: 11-13-2023 ambulatory Shayy Jerome Work Phone: [facility] Work Phone: Start: 11-13-2023 End: 11-13-2023 Patient encounter procedure Shayy Jerome Work Phone: [facility] Vascular Surgery Work Phone: Start: 10-22-2023 End: 10-23-2023 Emergency department patient visit KACIE CARRASCO [facility] Start: 10-20-2023 End: 10-20-2023 Emergency department patient visit Dilia Estrada Facility:[facility] Start: 10-20-2023 End: 10-20-2023 Emergency department patient visit Shayy Jerome Work Phone: [facility] Work Phone: Start: 10-25-2022 End: 10-25-2022 ambulatory Kacie Almazan Other [facility] Other Start: 10-25-2022 Office outpatient vi sit 15 minutes Kacie Almazan [facility] Start: 02-27-2022 End: 02-27-2022 ambulatory Ann Marie Nava Other [facility] Other Start: 02-27-2022 Office outpatient ne w 20 minutes Ann Marie Nava [facility] Start: 02-08-2020 ambulatory DEMETRICE BLAKE Facility:[facility] 1 Procedures Date Procedure Procedure Detail Performing Clinician Start: 10-20-2023 Duplex scan of lower limb veins Shayy Jerome Work Phone: Start: 10-20-2023 Plain X-ray of left tibia and left fibula Shayy Jerome Work Phone: Plan of Treatment Date Care Activity Detail Author Start: 02-03-2030 DTaP,Tdap and Td Vaccines (8 - Td or Tdap) DTaP,Tdap and Td Vaccines (8 - Td or Tdap) [facility] Start: 10-21-2024 Adult BMI Screening Adult BMI Screen ing [facility] Start: 10-21-2024 Tobacco Screening Tobacco Screening [facility] Start: 04-04-2024 COVID-19 Vaccine ( season) COVID-19 Vaccine ( season) [facility] Start: 04-04-2024 Influenza vaccination Influenza Vacc ine [facility] Start: 10-20-2023 Duplex scan of lower limb veins US venous duplex LE LT [facility] Start: 10-20-2023 US Lower extremity v ein - left [facility] Start: 12-16-2016 Screening for malign ant neoplasm of cervix Pap Smear [facility] Start: 12-16-2013 Adult BMI Follow Up Plan Adult BMI Follow Up Plan [facility] Start: 2007 Depression Screening Depression Scre ening [facility] Patient Education Going Home on Blood Thinners Deep Vein Thrombosis (DVT) ED [facility] Work Phone: Patient referral [facility] Work Phone: Immunizations Immunization Date Immunization Notes Care Provider Fa [facility] 06-10-2024 tuberculin skin test ; purified protein derivative solution, intradermal Dana Fuentes FOUR H AGENT-OB SCRUB TECH Work Phone: [facility] 04-19-2021 influenza virus vaccine, unspecified formulation Dana Fuentes FOUR H AGENT-OB SCRUB TECH Work Phone: [facility] Payers Date Payer Category Payer [employer] Jimmy Castellano ld Managed Care - Other ANTHEM [id number] 2024 Unknown [id number] 2023 Self-pay 2023 Private Health Insurance [id number] 1995 Unknown [id number] 1995 Unknown [id number] 1995 Unknown [id number] 1995 Unknown [id number] 1995 Unknown [id number] 1959 Unknown [id number] [facility] [place] [id number] Unknown [id number] Unknown [id number] Social History Date Type Detail Facility Start: 01-13-2019 End: 10-22-2023 Sex Assigned At [facility] Start: 10-20-2023 End: 10-22-2023 Tobacco smoking status NHIS Never smoked tobacco (finding) [facility] Start: 1995 Sex Assigned At Female [facility] Start: 10-22-2023 Tobacco use and exposure Smokeless tobacco non-user [facility] Start: 10-22-2023 Alcoholic beverage intake Ex-drinker (finding) [facility] Start: 01-13-2019 End: 10-22-2023 History of Social function [facility] Childcare Unknown [facility] Start: 1995 Sex assigned at Not on file [facility] Start: 03-09-2015 Sex Female (finding) [facility] NEGATED: Highlighted row [facility] Clinical Notes 02-27-2022 to 06-12-2024 Ruben Gupta, HA - 06/12/2024 5:15 PM ESTHeaALICJA Corral - 06/10/2024 4:35 PM ESTPatient Instructions Note Date & Type Note Facility 06-12-2024 History of Presen t illness Narrative PPD Reading Note PPD read and results entered in [facility]. Result: 0 mm induration. Interpretation: 0 If test not read within 48-72 hours of initial placement, patient advised to repeat in other arm 1-3 weeks after this test. Allergic reaction: no documented in this encounter [facility] 06-10-2024 History of Presen t illness Narrative PPD Placement note Bhumi Lowery, 28 y.o. female is here today for placement of PPD test Reason for PPD test: employment/school Pt taken PPD test before: yes Verified in allergy area and with patient that they are not allergic to the products PPD is made of (Phenol or Tween). No Is patient taking any oral or IV steroid medication now or have they taken it in the last month? no Has the patient ever received the BCG vaccine?: no Has the patient been in recent contact with anyone known or suspected of having active TB disease?: no Date of exposure (if applicable): N/A Name of person they were exposed to (if applicable): N/A Patient's Country of origin?: [place] O: Alert and oriented in NAD. P: PPD placed on 06/10/2024. Patient advised to return for reading within 48-72 hours. Provider did not examine patient JACQUI Kaplan 06/10/247 documented in this encounter [facility] 06-10-2024 Instructions JACQUI Kaplan - 06/10/2024 4:35 PM EST Consider immediate medical re-evaluation from a healthcare provider for continuing, worsening, concerning or new symptoms. Contact your primary care physician's office within the next 1-2 business days to share the information that has been discussed with you during today's visit. If you do not have a primary care physician, please consider returning to urgent care or the nearest emergency dept. for evaluation of non-improving symptoms until you are established with a primary care practice. NEED A PROVIDER? -[phone] DOCS // or ppgdocs. If you have been prescribed any medications during your visit today, those medications have been discussed with you including: Dose, frequency, duration, and potential side effects. Every individual responds differently to each medication, please use caution until you understand how each medication affects you individually. If you have been recommended ypsl-eou-qvfccgi medications please use those medications as indicated on their packaging detail. [facility] Evaluation note Encounter Date Diagnosis Assessment Notes Oct, Strain of neck muscle, initial encounter (ICD-10 - S16.1XXA) Discussed diagnosis with patient. Will send in rx of Medrol dose pack to use as directed. May use OTC Tylenol and icy hot application for additional relief. Encouraged warm compresses, light stretches, and massage may also help with pain. Avoid strenuous activity, perform activity as tolerated. Follow up with PCP in 1 week if symptoms do not improve. Immediate eval for chest pain, shortness of breath, fever, numbness or tingling, loss of bowel or bladder control, pain becomes severe, difficulty moving neck, back, arms or legs, dizziness, headache, or any other new or concerning symptoms arise. Patient verbalizes understanding and is agreeable to treatment plan. [facility] Other 07-27-2022 Evaluation note* Encounter Date Diagnosis Assessment Notes Treatment Notes Treatment Clinical Notes Feb, Plantar fasciitis of right foot (ICD-10 - M72.2) Plantar fasciitis home care material was printed Drink plenty fluids, get plenty of rest. Take the prednisone as prescribed until gone. Buy a gel pad for the heel of your foot. Consider freezing a bottle of water and rolling your foot on the frozen bottle 2-3 times a day. Follow-up with your family physician if no improvement in 2 to 3 days. [facility] Other Evaluation noteNo assessment information available [facility] Work Phone: Evaluation note* Diagnosis Healthcare maintenance- Primary Encounter for PPD test [facility]* Diagnosis Encounter for screening for respiratory tuberculosis- Primary [facility] N[facility] - Reported* Type Description Date Medical History IBS Admiral Records Management [facility] [employer] Other History general Narrative - Reported* Type Description Date Medical History IBS Medical History Anxiety [facility] [employer] Other Hospital Discharge instructions Additional Instructions Take the blood thinner Xarelto as prescribed until completed Follow-up with vascular surgery for monitoring of your blood clot Do not take any NSAIDs such as ibuprofen naproxen while taking the Xarelto but you can take xruy-mwt-zfbszcg Tylenol Return to an ER for head injury uncontrolled bleeding or any other concerns [facility] Work Phone: InstructionsNot on filedocumented in this encounter [facility] Summary Purpose Family History No Family History Records FoundNo Family History Records FoundNo Family History Records FoundNo Family History Records FoundNo Family History Records Found Advance Directives No Advanced Directives Records Found Advance Directive Response Recorded Date/ Time Advance Directives No October 19 12:29pm Advance Directive Response Recorded Date/ Time Advance Directives No October 20 3:09pm Chief Complaint and Reason for Visit Chief Complaint left leg pain Chief Complaint left leg pain ER F/U FOR DVT Additional Source Comments INFORMATION SOURCE (unrecogn ized section and content) DATE CREATED AUTHOR 08/30/2021 [facility] DATE CREATED AUTHOR AUTHOR'S ORGANIZ ATION 10/22/2021 [facility] DATE CREATED AUTHOR AUTHOR'S ORGANIZ ATION 10/24/2023 [facility] DATE CREATED AUTHOR AUTHOR'S ORGANIZ ATION 10/31/2023 [facility] DATE CREATED AUTHOR AUTHOR'S ORGANIZ ATION 06/12/2024 [facility] REASON FOR VISIT (unrecogniz ed section and content) Reason Comments TB Test Care Teams (unrecognized sec tion and content) Team Status: Active Member Role Status Dates Shayy Jerome Primary Care Provider Active Team Status: Inactive Member Role Status Dates Shayy Jerome Primary Care Provider Active Star t: October 20, 2023 End: October 20, 2023 [facility] Active Start: October 20, 2023 End: October 20, 2023 Team Status: Inactive Member Role Status Dates Shayy Jerome Primary Care Provider Active Star t: November 13, 2023 End: November 13, 2023 Connor Barragan MD Attending Provider Active Start: November 13, 2023 End: November 13, 2023 Rn Provider Relations Relationship Specialty Start Date End Date Shayy JeromeX[facility]IL[facility] TECH PCP - General Nurse Practitioner 10/22/23 Goals (unrecognized section and content) Goals may be documented in a n alternate section FOR RECORDS PERTAINING TO PATIENTS WHO ARE OR HAVE BEEN ENROLLED IN A CHEMICAL DEPENDENCY/SUBSTANCEABUSE PROGRAM, SOME INFORMATION MAY BE OMITTED. This clinical summary was aggregated from multiple sources. Caution should be exercised in using it in the provision of clinical care. This summary normalizes information from multiple sources, and as a consequence, information in this document may materially change the coding, format and clinical context of patient data. In addition, data may be omitted in some cases. CLINICAL DECISIONS SHOULD BE BASED ON THE PRIMARY CLINICAL RECORDS. [employer] provides no warranty or guarantee of the accuracy or completeness of information in this document.
[2024-07-05 12:17] LABS: Influenza Virus A Antigen Negative; Influenza Virus B Antigen Negative; Internal Control Within Normal Limits
[2024-07-05 12:18] LABS: Internal Control Within Normal Limits; SARS-CoV-2 Ag NEGATIVE (NEGATIVE)
[2024-07-05 12:43] VITALS: O2SAT 97
== END 2024-07-05 12:44 | disposition home or self-care (01) ==
PROVIDERS: Emergency Provider Emergency Medicine; PCP Nurse Practitioner Family
DX: J18.9 Pneumonia, unspecified organism (principal)
CPT/HCPCS: 71045; 87804; 87811; 99284

== ENCOUNTER 2025-02-09 19:23 | Emergency (ER) | payer BC, SELFPAY ==
[2025-02-09 19:50] VITALS: BP 100/88; PULSE 79; TEMP 36.7; O2SAT 100; BMI 43.6
--- NOTE | 2025-02-09 20:02 | XR_ITS ---
[address] [address] Patient Name: BHUMI LANE MRN: [id number] date: 1995 Sex: F Assigned Patient Location: ER Current Patient Location: ED.MAIN Accession/Order Number: [id number] Exam Date: 02/09/2025 20:58 Report Date: 02/09/2025 20:59 At the request of: SWETHA ARZATE NP Procedure: XR toe RT min 2V 3 views right fifth digit INDICATION: Injury COMPARISON: None FINDINGS/IMPRESSION: No definite acute fracture or dislocation. Mild soft tissue swelling. Impression dictated by: Jesus Alberto Zheng M.D. 02/09/2025 8:59 PM Dictation Location: [place] [address] Electronically authenticated by: [id number] Y Date: 02/09/2025 20:59
--- NOTE | 2025-02-09 20:19 | ED.GENADUL1 ---
HPI HPI - General Adult General Chief complaint: Extremity Injury, Lower Stated complaint: LE PAIN Time Seen by Provider: 02/09/25 20:02 Source: patient Mode of arrival: walk-in Limitations: no limitations History of Present Illness HPI narrative: Patient is a 29-year-old female who presents to the emergency department today for evaluation concerns for an injury to a toe on her right foot. She endorses a door was subsequently pushed into the fifth digit of her right foot yesterday. She endorses since then she has had pain to the affected toe but reports some shooting pain up her foot. She mention she has not taken any analgesic medication for this. Related Data Home Medications ?Medication ?Instructions ?Recorded ?Confirmed No Known Home Medications 02/09/25 02/09/25 Allergies Allergy/AdvReac Type Severity Reaction Status Date / Time No Known Drug Allergies Allergy Verified 02/09/25 19:52 Opioid HPI Opioid Management Most Recent Opioid Data: Last Pain Scale 5 02/09/25, 19:50 Review of Systems ROS Status of ROS 10 or more systems reviewed and unremarkable except as noted in history and below PFSH PFSH Social History Smoking status: Never smoker Little interest or pleasure in doing things: not at all Feeling down, depressed, or hopeless: not at all Exam Narrative Exam Narrative: Constituational: Awake/ alert, no apparent distress, well hydrated HENMT: normocephalic, external ears normal, moist oral mucous membranes and oropharynx normal Eyes: EOMI and conjunctivae normal Neck: ROM intact Chest: inspection of chest normal Respiratory: Normal respiratory effort MSK: + Mild pain to fifth digit of R foot without surrounding edema, ecchymosis, crepitus, deformity, R foot/lower leg stable, +NVI Skin: no rashes or petechiae Neuro: no focal deficits Psych: mental status grossly normal Constitutional Vital Signs, click to edit/add: Last Vital Signs Temp 98.1 F 02/09/25 19:50 Pulse 79 02/09/25 19:50 Resp 18 02/09/25 19:50 BP 100/88 02/09/25 19:50 Pulse Ox 100 02/09/25 19:50 O2 Del Method Room Air 02/09/25 19:50 Course Vital Signs Vital signs: Vital Signs Temperature 98.1 F 02/09/25 19:50 Pulse Rate 79 02/09/25 19:50 Respiratory Rate 18 02/09/25 19:50 Blood Pressure 100/88 02/09/25 19:50 Pulse Oximetry 100 02/09/25 19:50 Oxygen Delivery Method Room Air 02/09/25 19:50 Temperature 98.1 F 02/09/25 19:50 Pulse Rate 79 02/09/25 19:50 Respiratory Rate 18 02/09/25 19:50 Blood Pressure 100/88 02/09/25 19:50 Pulse Oximetry 100 02/09/25 19:50 Oxygen Delivery Method Room Air 02/09/25 19:50 Medical Decision Making MDM Narrative Medical decision making narrative: The patient is a well-appearing 29-year-old female who presented to the emergency department today for evaluation concerns for an injury to her right fifth toe 2/2 blunt injury from a door. Initial examination vital signs overall stable. No concerning neurovascular motor findings on exam. Patient was offered analgesics while the emergency department lined as she mention her pain was not that significant. Imaging of the fifth toe of the right foot without critical findings. Discussed this with the patient including recommendations for supportive care of likely toe sprain. Advised on follow-up with patient's primary care provider for reevaluation in addition to orthopedics as needed. Discussed signs and symptoms of any worsening condition and when to consider reevaluation by the emergency department. Patient verbalized an understanding of this and is agreeable with the plan to be discharged home. Medical Records Medical records reviewed: Yes I reviewed the patient's medical records Imaging Data XR 5th toe Right Foot: Attestation: I have reviewed the pertinent imaging results. Discharge Plan Discharge Chief Complaint: Extremity Injury, Lower Clinical Impression: Sprain of toe, fifth, right Patient Disposition: Home, Self-Care Prescriptions / Home Meds: No Action No Known Home Medications Print Language: Lithuanian Instructions: Foot Sprain (ED) Additional Instructions: Rest, ice, may take Tylenol and ibuprofen as needed for any pain. Follow-up with your primary care provider and/orthopedics for reevaluation as discussed. Referrals: Garth Olson DO [Primary Care Provider] - 1 week Alex Victor MD [Physician, Orthopedics] - 1 week Discharge Date/Time: 02/09/25 21:56
--- OUTSIDE RECORDS SUMMARY | 2025-02-09 22:17 | XMS_ITS | CCD ---
Author Organization [facility] Care Team Providers Care Data Capture Clerk Name Role Phone DEMETRICE BLAKE Attending Unavailable DEMETRICE BLAKE Admitting Unavailable Ann Marie Nava Unavailable Kacie Almazan Unavailable Shayy Jerome Primary Care Provider [facility] Dilia Dorado Emergency Provider SHAYY JEROME Primary Care Unavailable GIBRAN ZUNIGA Attending UnavailKACIE Alvarez Attending Unavailable KACIE HESS Referring Unavailable SHAYY JEROME Primary Care Unavailable Dilia Estrada Attending Unavailable Dilia Estrada Admitting Unavailable Justus Shayy Todd Primary Care Unavailable JUSTUS SHAYY Todd Referring Unavailable JEROME, SHAYY L Primary Care Unavailable SAGE STERLING Attending Unavailable SHAYY JEROME Referring Unavailable JEROME SHAYY L Primary Care Unavailable MODE GRANADOS Attending Unavailable GINYN BERNARD Attending Unavailable Garth Olson DO Primary Care Provider Shayy Jerome Primary Care Provider Celsa Moeller APRN Attending Provider Allergies Allergy Classification Reported Allergen(s) Allergy Type Date of Onset Reaction(s) Facility (3 sources) Naproxen; Translations: [NAPROXEN] Drug Allergy 10-20-2023 [facility] Medications Current Medications Medication Drug Class(es) Dates Sig (Normalized) Sig (Original) methylPREDNISolone 4 mg oral tablet (1 source) Corticosteroid Start: 3 methylPREDNISolone 4 MG as directed Orally for daily dose take half with breakfast, half with dinner for 6 days Oct, Active ondansetron 8 mg disintegrating oral tablet (2 sources) Serotonin-3 Receptor Antagonist Start: End: take 1 tablet by mouth every eight hours for nausea ondansetron ODT (Zofran-ODT) 8 MG disintegrating tablet Indications: Nausea and vomiting, unspecified vomiting type Take 1 tablet (8 mg) by mouth every 8 (eight) hours if needed for nausea or vomiting for up to 5 days 15 tablet 09/13/2024 09/18/2024 Active oseltamivir 75 mg oral capsule (2 sources) Neuraminidase Inhibitor Start: End: take 1 capsule by mouth in the morning oseltamivir (Tamiflu) 75 MG capsule Indications: Exposure to influenza Take 1 capsule (75 mg) by mouth in the morning and 1 capsule (75 mg) before bedtime. Do all this for 5 days. 10 capsule 09/13/2024 09/18/2024 Active Completed/Discontinued Medications Medication Drug Class(es) Dates Sig (Normalized) Sig (Original) predniSONE 20 mg oral tablet (2 sources) Start: 07-17-2024 End: 02-02-2025 take 1 tablet by mouth twice daily Prednisone 20 mg tablet Discontinued 20 MG PO Twice daily 10 July 17, 2024 1:00am February 02, 2025 4:00pm Start: 02-27-2022 take 1 tablet by tracy th every twelve hours predniSONE 20 MG 1 tablet Orally 2 times a day for 5 day(s) Feb, Active rivaroxaban 20 mg oral tablet (5 sources) Factor Xa Inhibitor Start: 11-13-2023 End: 02-02-2025 take 1 tablet by mouth once daily at dinner Rivaroxaban (Xarelto) 20 mg tablet Discontinued 20 MG PO Daily November 13, 2023 12:00am February 02, 2025 4:04pm must administer with evening meal Start: 10-20-2023 End: 02-02-2025 take 1 tablet by mouth twice daily at mealtime Rivaroxaban (Xarelto Dvt-Pe Treat 30d Start) 15 mg (42)- 20 mg (9) tablets,dose pack Discontinued 0 PO .COMPLEX October 20, 2023 12:00am February 02, 2025 4:00pm take one-15 mg tablet twice daily for 21 days, then one-20 mg tablet once daily; must take with meal/food Problems Active Problems Problem Classification Problem Date Documented Da te Episodic/Chronic Chronic obstructive pulmonary disease and bronchiectasis (1 source) Bronchitis; Translations: [Bronchitis, not specified as acute or chronic] 07-17-2024 Episodic Immunizations and screening for infectious disease (2 sources) Contact with and (suspected) exposure to other viral communicable diseases; Translations: [Contact with or exposure to other viral diseases] 09-13-2024 Episodic Nausea and vomiting (2 sources) Nausea and vomiting; Translations: [Nausea with vomiting, unspecified] 09-13-2024 Episodic Nonspecific chest pain (1 source) Chest pain, unspecified; Translations: [Chest pain, unspecified] Onset: 10-22-2023 Episodic Other connective tissue disease (1 source) Pain in left leg; Translations: [Pain in left leg] Onset: 10-20-2023 Episodic Other lower respiratory disease (2 sources) Cough; Translations: [Cough, unspecified type] 09-13-2024 Episodic Phlebitis; thrombophlebitis and thromboembolism (4 sources) Deep venous thrombosis; Translations: [Acute embolism [...] Unclassified (1 source) TB Test Onset: 06-12-2024 Varicose veins of lower extremity (1 source) Varicose veins of lower extremity; Translations: [Varicose veins of bilateral lower extremities with other complications] 11-13-2023 Episodic Past or Other Problems Problem Classification Problem Date Documented Da te Episodic/Chronic Other connective tissue disease (1 source) 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 Resolved: 02-27-2022 Episodic Results Test Name Value Interpretation Reference Range Facility No Panel InformationOrdered By: Celsa Moeller on 02-02-2025 Quick Strep (POC) [facility] - Microbiology an d Antimicrobial susceptibilityon 09-13-2024 SARS-CoV-2 (COVID-19) RNA SHRUTHI+probe Ql (Unsp spec) Negative Negative [facility] No Panel Informationon 09-13 INFLUENZA A Negative Negative [facility] INFLUENZA B Negative Negative [facility] Interpretation and review of laboratory results Normal [facility] CBC AND AUTO DIFFon 10-22-19 24 ABSOLUTE BASOPHIL 0.1 X10E9/L Normal 0.0-0.2 [facility] Comment on above: Performed By: #### C BCA, PINR, 53455-6, CMP, 19983-7 #### [facility] ([id number]) [address] [place] [address] 39071 ABSOLUTE NEUTROPHIL 5.0 X10E9/L Normal 1.5-6.6 [facility] Comment on above: Performed By: #### C BCA, PINR, 14677-0, CMP, 49442-9 #### [facility] ([id number]) [address] [place] [address] 67244 Basophils/100 WBC (Bld) 1.2 % Normal [facility] Comment on above: Performed By: #### C BCA, PINR, 75581-0, CMP, 24490-4 #### [facility] ([id number]) [address] [place] [address] 45874 Eosinophils (Bld) [#/Vol] 0.3 10*3/uL Normal 0.0-0.4 [facility] Comment on above: Performed By: #### C BCA, PINR, 88246-2, CMP, 74023-2 #### [facility] ([id number]) [address] [place] [address] 97282 Eosinophils/100 WBC (Bld) 3.4 % Normal [facility] Comment on above: Performed By: #### C BCA, PINR, 67770-8, CMP, 81166-7 #### [facility] ([id number]) [address] [place] [address] 09034 Erythrocyte distribution width (RBC) [Ratio] 14.7 % Normal 11.5-15.0 [facility] Comment on above: Performed By: #### C BCA, PINR, 62558-1, CMP, 07980-1 #### [facility] ([id number]) [address] [place] [address] 23853 Hematocrit (Bld) [Volume fraction] 37.6 % Normal 35-47 [facility] Comment on above: Performed By: #### C BCA, PINR, 59778-7, CMP, 09515-4 #### [facility] ([id number]) [address] [place] [address] 45506 Hemoglobin (Bld) [Mass/Vol] 12.5 g/dL Normal 11.7-15.5 [facility] Comment on above: Performed By: #### Dottie BCA, PINR, 65757-2, CMP, 31639-6 #### [facility] ([id number]) [address] [place] [address] 89170 Lymphocytes (Bld) [#/Vol] 2.2 10*3/uL Normal 1.0-3.5 [facility] Comment on above: Performed By: #### Dottie BCA, PINR, 84935-0, CMP, 23749-5 #### [facility] ([id number]) [address] [place] [address] 75586 Lymphocytes/100 WBC (Bld) 26.1 % Normal [facility] Comment on above: Performed By: #### C BCA, PINR, 66875-4, CMP, 81723-4 #### [facility] ([id number]) [address] [place] [address] 52746 MCH (RBC) [Entitic mass] 27.6 pg Normal 27-34 [facility] Comment on above: Performed By: #### Dottie BCA, PINR, 66575-9, CMP, 25721-6 #### [facility] ([id number]) [address] [place] [address] 75168 MCHC (RBC) [Mass/Vol] 33.4 g/dL Normal 32-36 [facility] Comment on above: Performed By: #### C BCA, PINR, 61618-3, CMP, 42991-3 #### [facility] ([id number]) [address] [place] [address] 44827 MCV (RBC) [Entitic vol] 83 fL Normal 80-100 [facility] Comment on above: Performed By: #### C BCA, PINR, 80602-6, CMP, 75924-5 #### [facility] ([id number]) [address] [place] [address] 49373 Monocytes (Bld) [#/Vol] 0.7 10*3/uL Normal 0-0.9 [facility] Comment on above: Performed By: #### C BCA, PINR, 66519-1, CMP, 65626-1 #### [facility] ([id number]) [address] [place] [address] 76839 Monocytes/100 WBC (Bld) 8.9 % Normal [facility] Comment on above: Performed By: #### C BCA, PINR, 48698-6, CMP, 36840-5 #### [facility] ([id number]) [address] [place] [address] 95695 Neutrophils/100 WBC (Bld) 60.4 % Normal [facility] Comment on above: Performed By: #### C BCA, PINR, 74801-8, CMP, 33549-6 #### [facility] ([id number]) [address] [place] [address] 15222 Platelet mean volume (Bld) [Entitic vol] 10.4 fL Normal 7-12 [facility] Comment on above: Performed By: #### C BCA, PINR, 41420-2, CMP, 32457-3 #### [facility] ([id number]) [address] [place] [address] 44608 Platelets (Bld) [#/Vol] 329 10*3/uL Normal 150-450 [facility] Comment on above: Performed By: #### C BCA, PINR, 77702-3, CMP, 12726-4 #### [facility] ([id number]) [address] [place] [address] 87478 RBC COUNT 4.54 X10E12/L Normal 3.80-5.20 [facility] Comment on above: Performed By: #### C BCA, PINR, 72404-0, CMP, 33596-2 #### [facility] ([id number]) [address] [place] [address] 92755 WBC (Bld) [#/Vol] 8.3 10*3/uL Normal 4.0-11.0 [facility] Comment on above: Performed By: #### C BCA, PINR, 19500-1, CMP, 89076-2 #### [facility] ([id number]) [address] [place] [address] 34701 COMPREHENSIVE METABOLIC PANE [place] 10-22-2023 Albumin [Mass/Vol] 4.2 g/dL Normal 3.2-5.3 [facility] Comment on above: Performed By: #### C BCA, PINR, 41627-3, CMP, 95564-3 #### [facility] ([id number]) [address] [place] [address] 71455 ALP [Catalytic activity/Vol] 84 U/L Normal 39-130 [facility] Comment on above: Performed By: #### C BCA, PINR, 10479-3, CMP, 71644-8 #### [facility] ([id number]) [address] [place] [address] 10839 ALT [Catalytic activity/Vol] 62 U/L High 0-31 [facility] Comment on above: Performed By: #### C BCA, PINR, 94994-1, CMP, 91134-7 #### [facility] ([id number]) [address] [place] [address] 05233 Anion gap [Moles/Vol] 6 mmol/L Normal 5-15 [facility] Comment on above: Performed By: #### C BCA, PINR, 84498-9, CMP, 89882-6 #### [facility] ([id number]) [address] [place] [address] 84410 AST [Catalytic activity/Vol] 38 U/L Normal 0-41 [facility] Comment on above: Performed By: #### C BCA, PINR, 29787-7, CMP, 05132-3 #### [facility] ([id number]) [address] [place] [address] 91957 Bilirubin [Mass/Vol] 0.8 mg/dL Normal 0.3-1.2 [facility] Comment on above: Performed By: #### C BCA, PINR, 86926-8, CMP, 77579-5 #### [facility] ([id number]) [address] [place] [address] 21984 Calcium [Mass/Vol] 8.8 mg/dL Normal 8.5-10.5 [facility] Comment on above: Performed By: #### C BCA, PINR, 08122-3, CMP, 94168-2 #### [facility] ([id number]) [address] [place] [address] 45423 Chloride [Moles/Vol] 107 mmol/L Normal 98-109 [facility] Comment on above: Performed By: #### C BCA, PINR, 42330-4, CMP, 00143-4 #### [facility] ([id number]) [address] [place] [address] 57484 CO2 [Moles/Vol] 22 mmol/L Normal 22-32 [facility] Comment on above: Performed By: #### C BCA, PINR, 34526-6, CMP, 96749-6 #### [facility] ([id number]) [address] [place] [address] 77127 Creatinine [Mass/Vol] 0.59 mg/dL Normal 0.40-1.00 [facility] Comment on above: Result Comment: METH OD TRACEABLE TO IDMS STANDARD Performed By: #### C BCA, PINR, 02142-2, CMP, 19743-8 #### [facility] ([id number]) [address] [place] [address] 12681 eGFR (CKD-EPI) NON-RACE DEPENDENT >90 Normal >59 [facility] Comment on above: Result Comment: Reported eGFR is based on the CKD-EPI 2020 equation that does not use a race coefficient. Performed By: #### C BCA, PINR, 11833-1, CMP, 86051-1 #### [facility] ([id number]) [address] [place] [address] 05064 Glucose [Mass/Vol] 98 mg/dL Normal 65-99 [facility] Comment on above: Performed By: #### C BCA, PINR, 27113-2, CMP, 15958-2 #### [facility] ([id number]) [address] [place] [address] 06304 Potassium [Moles/Vol] 3.8 mmol/L Normal 3.5-5.0 [facility] Comment on above: Performed By: #### C BCA, PINR, 13798-4, CMP, 67444-2 #### [facility] ([id number]) [address] [place] [address] 24586 Protein [Mass/Vol] 8.1 g/dL High 6.0-8.0 [facility] Comment on above: Performed By: #### C BCA, PINR, 90614-4, CMP, 62807-2 #### [facility] ([id number]) [address] [place] [address] 03987 Sodium [Moles/Vol] 135 mmol/L Normal 134-146 [facility] Comment on above: Performed By: #### C BCA, PINR, 80413-3, CMP, 28374-8 #### [facility] ([id number]) [address] [place] [address] 06186 Urea nitrogen [Mass/Vol] 10 mg/dL Normal 5-23 [facility] Comment on above: Performed By: #### C BCA, PINR, 85376-8, CMP, 50993-1 #### [facility] ([id number]) [address] [place] [address] CTA CHESTon 10-22-2023 CT CTA CHEST [...] Flaherty MD on 10/22/2023 7:37 PM Normal [facility] HCG ( test) Ql (U)o n 10-22-2023 Beta HCG ( test) Ql (U) Negative Normal NEG [facility] Comment on above: Performed By: #### 2 106-3 #### [facility] ([id number]) [address] [place] [address] 49740 PROTIME AND INRon 10-22-2023 INR Coag (PPP) [Relative time] 1.6 {INR} High 0.8-1.1 [facility] Comment on above: Performed By: #### C BCA, PINR, 87606-3, CMP, 74133-5 #### [facility] ([id number]) [address] [place] [address] 16373 PT Coag (PPP) [Time] 18.5 s High 9.8-13.2 [facility] Comment on above: Result Comment: NEW REFERENCE RANGE Performed By: #### C BCA, PINR, 27600-4, CMP, 47682-9 #### [facility] ([id number]) [address] [place] [address] 01643 TROPONIN Ion 10-22-2023 Troponin I.cardiac [Mass/Vol] ng/mL Normal 0.00-0.04 [facility] Comment on above: Performed By: #### C BCA, PINR, 92938-8, CMP, 68356-6 #### [facility] ([id number]) [address] [place] [address] 46267 aPTT Coag (PPP) [Time]on aPTT Coag (Bld) [Time] 39 s High 26-37 [facility] Comment on above: Result Comment: NEW REFERENCE RANGE Performed By: #### C BCA, PINR, 80185-1, CMP, 88373-5 #### [facility] ([id number]) [address] [place] [address] 78463 US venous duplex LE LTon US venous duplex [facility] Main [address] [address] Ultrasound Report Signed Patient: Bhumi Lowery MR#: [id number] [birth year] : 1995 Acct:[id number] Age/Sex: 27 / F ADM Date: 10/20/23 Loc: ER Room: Type: [facility] ER Attending Dr: Ordering Provider: HERBERT White [...] Connor Barragan MD10/21/2023 4:32 PM Dictation Location: [place] [address] Tech: Mattie Rendon Transcribed By: JOLEEN 10/21/23 1632 Dictated By: Connor Barragan MD 10/21/23 1631 Signed By: 10/21/23 1632 Normal [facility] XR tibia fibula LT 2V*on XR tibia fibula LT 2V* [facility] [place] [address] XRay Report Signed Patient: Bhumi Lowery MR#: [id number] [birth year] : 1995 Acct:[id number] Age/Sex: 27 / F ADM Date: 10/20/23 Loc: ER Room: Type: [facility] ER Attending Dr: Copies to: HERBERT White [...] Eliseo Aldridge M.D.10/20/2023 1:01 PM Dictation Location: [place] [address] Transcribed By: [facility] 10/20/23 1301 Dictated By: Eliseo Aldridge DO 10/20/23 1301 Signed By: 10/20/23 1301 [facility] Ambulatory Visit Summaryon 0 09-16-2021 Ambulatory Visit [...] Up with Shayy Jerome CNP When: Where: [address] [place] [address], [address] [place] [address]- Medications What How Much When Instructions New oseltamivir (Tamiflu 75 mg Cap) 1 Capsules By Mouth 2 times a day Duration: 5 Days Pickup at [facility]pharmacy #[id number] Unchanged multivitamin, ( Multivitamins) 1 Tablets By Mouth Every day Contact prescribing physician if questions or concerns Unchanged polycarbophil (Fiber Tabs) Contact prescribing physician if questions or concerns Pharmacy Information [facility]/pharmacy #[id number]: [address] [place], [place] [id number] [phone] Allergies No Known Allergies Problems Ongoing - [...] health care provider may recommend: ? Taking ytut-fvh-lardpcl medicines. ? Drinking plenty of fluids. In [...] 24 h (more content not included)... Normal [facility] Family Medicine Office/Clini c Noteon 09-16-2021 Family [...] Chills: yes Fever: yes- 101.1 at home ABDALLA: yes Nasal congestion: yes Rhinorrhea: yes Cough: [...] Influenza + Ordered: Influenza Type A&B POC 75938 3. BMI 37.0-37.9, adult (Z68.37: Body mass [...] day(s), # 10 cap(s), Refills(s) 0, Pharmacy: [facility]/pharmacy #[id number], 170, cm, 09/16/21 13:22:00 EST, Height/Length Dosing, 108.6, kg, 09/16/21 13:22:00 EST, Weight Dosing Follow-up With When Contact Information Shayy Jerome CNP [address] [place] [address], [address] [place] [address]- Additional Instructions: Patient Education Influenza, Adult BMI [...] not exercise (more content not included)... Normal [facility] Comment on above: Result Comment: Elec tronically Signed By: Ryann LONGORIA CNP\.britt\Date and Time Signed: 09/16/21 14:19 EST Patient Educationon 09-16-19 22 Patient Education Infectious Disease Influenza, Adult Influenza, [...] health care provider may recommend: ? Taking ptqy-mie-zpqcvji medicines. ? Drinking plenty of fluids. In [...] and low-calorie sports drinks. ? Eat bland, uvxg-fs-ocargx foods in small amounts as you are able. These foods include bananas, applesauce, rice, lean meats, toast, and crackers. ? Avoid drinking fluids that contain a lot of sugar or caffeine, such as energy drinks, regular sports drinks, and soda. ? Avoid alcohol. ? Avoid spicy or fatty foods. General instructions ? Take lbbp-lxt-pbopvuk and prescription medicines only as told by [...] water are not available, use alcohol-based hand medical scientific officer. ? Keep all follow-up visits as told [...] feel na (more content not included)... Normal [facility] [place] BHUMI LOWERY [address] [place] [phone] Please excuse BHUMI LOWERY from work . Date and/or Time of Absence: From: 09/16/21 To: 09/17/21 May return to work on: 09/18/21 as long as overall improving symptoms, fever free Restrictions: None Comments: Please excuse due to an acute illness. Provider Signature: Ryann Longoria, INDOOR LANDSCAPER/GARDENER-SHOP MECHANIC HELPER, AUTO EMISSIONS TECHNICIAN-C Nurse Practitioner [address] [place] [address] [place] [address] Normal [facility] Vital Signs Date Time Vital Sign Value Performing Clinician Facility 02-02-2025 16:04-0400 Body height 168.91 cm Shayy Jerome Work Phone: [facility] 02-02-2025 16:04-0400 Body mass index (BMI) [Ratio] 43.9 kg/m2 Shayy Jerome Work Phone: [facility] 02-02-2025 16:04-0400 Body temperature 99.3 [degF] Shayy Jerome Work Phone: [facility] 02-02-2025 16:04-0400 Body weight 125.3 kg Shayy Jerome Work Phone: [facility] 02-02-2025 16:04-0400 Diastolic blood pressure 75 mm[Hg] Shayy Jerome Work Phone: [facility] 02-02-2025 16:04-0400 Heart rate 87 /min Shayy Jerome Work Phone: [facility] 02-02-2025 16:04-0400 Respiratory rate 18 /min Shayy Jerome Work Phone: [facility] 02-02-2025 16:04-0400 SaO2% (BldA) [Mass fraction] 98 % Shayy Jerome Work Phone: [facility] 02-02-2025 16:04-0400 Systolic blood pressure 116 mm[Hg] Shayy Jerome Work Phone: [facility] 09-13-2024 14:49-0500 Body mass index (BMI) [Ratio] 43.16 kg/m2 Ginny Bernard SENIOR SECURITY ENGINEER Work Phone: [facility] 09-13-2024 14:49-0500 Body temperature 97.3 [degF] Ginny Bernard SENIOR SECURITY ENGINEER Work Phone: [facility] 09-13-2024 14:49-0500 Body weight 125 kg Ginny Bernard SENIOR SECURITY ENGINEER Work Phone: [facility] 09-13-2024 14:49-0500 Diastolic blood pressure 68 mm[Hg] Ginny Bernard SENIOR SECURITY ENGINEER Work Phone: [facility] 09-13-2024 14:49-0500 Heart rate 105 /min Ginny Bernard SENIOR SECURITY ENGINEER Work Phone: [facility] 09-13-2024 14:49-0500 SaO2% (BldA) [Mass fraction] 96 % Ginny Bernard SENIOR SECURITY ENGINEER Work Phone: [facility] 09-13-2024 14:49-0500 Systolic blood pressure 122 mm[Hg] Ginny Bernard SENIOR SECURITY ENGINEER Work Phone: [facility] 11-13-2023 10:12-0400 Body height 167.64 cm Shayy Jerome Work Phone: [facility] 11-13-2023 10:12-0400 Body mass index (BMI) [Ratio] 41.8 kg/m2 Shayy Jerome Work Phone: [facility] 11-13-2023 10:12-0400 Body temperature 97.7 [degF] Shayy Jerome Work Phone: [facility] 11-13-2023 10:12-0400 Body weight 117.48 kg Shayy Jerome Work Phone: [facility] 11-13-2023 10:12-0400 Diastolic blood pressure 70 mm[Hg] Shayy Jerome Work Phone: [facility] 11-13-2023 10:12-0400 Heart rate 79 /min Shayy Jerome Work Phone: [facility] 11-13-2023 10:12-0400 SaO2% (BldA) [Mass fraction] 98 % Shayy Jerome Work Phone: [facility] 11-13-2023 10:12-0400 Systolic blood pressure 124 mm[Hg] Shayy Jerome Work Phone: [facility] 10-20-2023 12:22-0400 Body height 167.64 cm Shayy Jerome Work Phone: [facility] 10-20-2023 12:22-0400 Body weight 120.3 kg Shayy Jerome Work Phone: [facility] 10-20-2023 12:20-0400 Body temperature 98.1 [degF] Shayy Jerome Work Phone: [facility] 10-20-2023 12:20-0400 Diastolic blood pressure 81 mm[Hg] Shayy Jerome Work Phone: [facility] 10-20-2023 12:20-0400 Heart rate 70 /min Shayy Jerome Work Phone: [facility] 10-20-2023 12:20-0400 Respiratory rate 20 /min Shayy Jerome Work Phone: [facility] 10-20-2023 12:20-0400 SaO2% (BldA) [Mass fraction] 98 % Shayy Jerome Work Phone: [facility] 10-20-2023 12:20-0400 Systolic blood pressure 129 mm[Hg] Shayy Jerome Work Phone: [facility] 10-25-2022 14:35-0400 Body height 170.18 cm Kacie Tha Other [employer] Other 10-25-2022 14:35-0400 Body mass index (BMI) [Ratio] 41.34 kg/m2 Kacie Almazan Other [employer] Other 10-25-2022 14:35-0400 Body temperature 98.2 [degF] Kacie Almazan Other [employer] Other 10-25-2022 14:35-0400 Body weight 119.75 kg Kacie Almazan Other [employer] Other 10-25-2022 14:35-0400 Diastolic blood pressure 69 mm[Hg] Kacie Almazan Other [facility] Other 10-25-2022 14:35-0400 Respiratory rate 18 /min Kacie Almazan Other [facility] Other 10-25-2022 14:35-0400 SaO2% (BldA) [Mass fraction] 99 % Kacie Almazan Other [facility] Other 10-25-2022 14:35-0400 Systolic blood pressure 117 mm[Hg] Kacie Almazan Other [facility] Other 02-27-2022 17:15-0400 Body height 170.18 cm Ann Marie Nava Other [facility] Other 02-27-2022 17:15-0400 Body mass index (BMI) [Ratio] 40.72 kg/m2 Ann Marie Nava Other [facility] Other 02-27-2022 17:15-0400 Body temperature 98.1 [degF] Ann Marie Nava Other [facility] Other 02-27-2022 17:15-0400 Body weight 117.94 kg Ann Marie Nava Other [facility] Other 02-27-2022 17:15-0400 Diastolic blood pressure 72 mm[Hg] Ann Marie Nava Other [facility] Other 02-27-2022 17:15-0400 Respiratory rate 18 /min Ann Marie Nava Other [facility] Other 02-27-2022 17:15-0400 SaO2% (BldA) [Mass fraction] 99 % Ann Marie Nava Other [facility] Other 02-27-2022 17:15-0400 Systolic blood pressure 124 mm[Hg] Ann Marie Nava Other [facility] Other Encounters Encounter Date Encounter Type Care Provider Facility Start: 02-02-2025 End: 02-02-2025 ambulatory Shayy Jerome Work Phone: [facility] Work Phone: Start: 02-02-2025 End: 02-02-2025 Patient encounter procedure Celsa Moeller [facility] Work Phone: Start: 09-13-2024 End: 09-13-2024 ambulatory GINNY BERNARD Not Available Start: 09-13-2024 End: 09-13-2024 Office outpatient visit 25 minutes Ginny Bernard SENIOR SECURITY ENGINEER Work Phone: [facility] Comment on above: Cough, unspecified t ype (Primary Dx); Exposure to influenza; Nausea and vomiting, unspecified vomiting type Start: 06-12-2024 End: 06-12-[address] [facility] Start: 06-10-2024 End: 06-10-[address] [facility] Start: 06-10-2024 Encounter for danielle l adult medical examination without abnormal findings SAGE STERLING [facility] Start: 11-13-2023 End: 11-13-2023 ambulatory Shayy Jerome Work Phone: [facility] Work Phone: Start: 11-13-2023 End: 11-13-2023 Patient encounter procedure Shayy Jerome Work Phone: [facility] Work Phone: Start: 10-22-2023 End: 10-23-2023 Emergency department patient visit [facility] Start: 10-20-2023 End: 10-20-2023 Emergency department patient visit Dilia Estrada Facility:[facility] Start: 10-20-2023 End: 10-20-2023 Emergency department patient visit Shayy Justus Work Phone: [facility] Work Phone: Start: 10-25-2022 End: 10-25-2022 ambulatory Kacie Almazan Other [facility] Other Start: 10-25-2022 Office outpatient vi sit 15 minutes Kacie Almazan [facility] Start: 02-27-2022 End: 02-27-2022 ambulatory Ann Marie Nava Other [facility] Other Start: 02-27-2022 Office outpatient ne w 20 minutes Ann Marie Nava [facility] Start: 02-08-2020 ambulatory DEMETRICE BLAKE Facility:[facility] 1 Procedures Date Procedure Procedure Detail Performing Clinician Start: 02-02-2025 Quick Strep (POC) Jerry Jerome Work Phone: Start: 09-13-2024 Infectious agent dna /rna influenza 1st 2 types Clemente Bernal DO Work Phone: Start: 09-13-2024 Sars-cov-2 detection by dna/rna Clemente Bernal DO Work Phone: Start: 10-20-2023 Duplex scan of lower limb veins Shayy Jerome Work Phone: Start: 10-20-2023 Plain X-ray of left tibia and left fibula Shayy Jerome Work Phone: Plan of Treatment Date Care Activity Detail Author Start: 04-04-2024 Influenza vaccination Influenza Vacc ine (#1) [facility] Start: 10-20-2023 Duplex scan of lower limb veins US venous duplex LE LT [facility] Start: 10-20-2023 US Lower extremity v ein - left [facility] Patient Education Going Home on Blood Thinners Deep Vein Thrombosis (DVT) ED [facility] Work Phone: Patient referral [facility] Work Phone: Immunizations Immunization Date Immunization Notes Care Provider Fa milton 04-19-2021 influenza virus vacc ine, unspecified formulation Ginny Bernard NP Work Phone: [facility] Payers Date Payer Category Payer [facility] er [id number] 2024 Unknown [id number] 2023 Self-pay 2023 Private Health Insurance [id number] 1995 Unknown [id number] 1995 Unknown [id number] 1995 Unknown [id number] 1995 Unknown [id number] 1995 Unknown [id number] 1995 Unknown [id number] 1959 Unknown [id number] [id number] [id number] Unknown [id number] Unknown [id number] Social History Date Type Detail Facility Sex Assigned At [facility] Other Start: 10-20-2023 End: 07-17-2024 Tobacco smoking status [facility] Never smoked tobacco (finding) [facility] Start: 1995 Sex Assigned At Female [facility] Tobacco smoking status [facility] Tobacco smoking consumption unknown [facility] Start: 1995 Sex assigned at Not on file [facility] Sex Female (finding) [facility] NEGATED: Highlighted row [facility] History of Present illness Narrative 09-13-2024 Ginny Bernard NP - 09/13/2024 2:35 PM EST Note Date & Type Note Facility 09-13-2024 History of Presen t illness Narrative Images from the original note were not included. [address], [address] [facility], [address] P: [phone] F: [phone] HPI Historian of HPI: patient Bhumi Lowery is a 28 y.o. female who presents today to the Urgent Care with the following complaints and denials which have been present for 1 day(s). C/O Denies Symptom Comments [] [x] Runny Nose [] [x] Difficulty Swallowing [x] [] Sore Throat [x] [] Cough [x] [] Ear Pain [x] [] Fever [x] [] Chills [] [x] Nasal Congestion [x] [] Myalgia [] [x] Sinus Pain [] [x] Sinus Pressure Additional Comments: pt has taken ibuprofen OTC medication without relief. Pt is agreeable to do flu and covid testing. ROS A complete system ROS was performed and negative aside from the pertinent positives noted in the HPI and PE. Visit Vitals BP 122/68 Pulse 105 Temp 97.3 F Wt 275 lb 9.2 oz SpO2 96% BMI 43.16 kg/m BSA 2.43 m IH Testing: PHYSICAL EXAM Physical Exam Vitals reviewed. Constitutional: General: She is not in acute distress. Appearance: Normal appearance. HENT: Head: Normocephalic and atraumatic. Right Ear: Hearing, tympanic membrane, ear canal and external ear normal. Left Ear: Hearing, tympanic membrane, ear canal and external ear normal. Nose: Congestion present. Right Turbinates: Enlarged and swollen. Left Turbinates: Enlarged and swollen. Mouth/Throat: Lips: [place]. Mouth: Mucous membranes are moist. Pharynx: Oropharynx is clear. Uvula midline. Postnasal drip present. Eyes: Extraocular Movements: Extraocular movements intact. Conjunctiva/sclera: Conjunctivae normal. Pupils: Pupils are equal, round, and reactive to light. Cardiovascular: Rate and Rhythm: Normal rate and regular rhythm. Pulses: Normal pulses. Heart sounds: Normal heart sounds. Pulmonary: Effort: Pulmonary effort is normal. No respiratory distress. Breath sounds: Normal breath sounds. No wheezing, rhonchi or rales. Abdominal: General: Abdomen is flat. Bowel sounds are normal. There is no distension. Palpations: Abdomen is soft. There is no mass. Tenderness: There is no abdominal tenderness. There is no right CVA tenderness, left CVA tenderness, guarding or rebound. Hernia: No hernia is present. Musculoskeletal: General: Normal range of motion. Cervical back: Normal range of motion and neck supple. Skin: General: Skin is warm and dry. Capillary Refill: Capillary refill takes less than 2 seconds. Findings: No rash. Neurological: General: No focal deficit present. Mental Status: She is alert and oriented to person, place, and time. Psychiatric: Mood and Affect: Mood normal. Behavior: Behavior normal. Thought Content: Thought content normal. Judgment: Judgment normal. TREATMENT PLAN 1. Cough, unspecified type (Primary) Influenza A/B and COVID testing negative, however, both of her children did test + for Influenza A in today and she has exact same symptoms. Work note provided. - INFLUENZA DNA PROBE - RAPID DNA COVID 2. Exposure to influenza Pt has had direct exposure to Influenza A by both of her children. Advised patient that she is highly contagious and to avoid contact with children/elderly/immunocompromised for the next 5-7 days.. Tylenol/motrin for fever, fluids, rest, OTC supportive treatment. Discussed with the patient that Influenza is a virus and that no antibiotics will treat this. Discussed medications and directions. Start Tamiflu immediately today. Take Prednisone with food, avoid other NSAIDS.To the ER if symptoms worsen or if she develops chest pain, difficulty breathing or worsening sensation of shortness of breath. Follow up in 5-7 days if no improvement or sooner if worsening. - oseltamivir (Tamiflu) 75 MG capsule; Take 1 capsule (75 mg) by mouth in the morning and 1 capsule (75 mg) before bedtime. Do all this for 5 days. Dispense: 10 capsule; Refill: 0 3. Nausea and vomiting, unspecified vomiting type Take medications as needed and monitor for alarm symptoms . Drink plenty of fluids to prevent dehydration, enough so that your urine is light yellow or clear like water. Choose water and other caffeine-free clear liquids until you feel better. Drink fluids slowly, in frequent, small amounts, because drinking too much too fast can cause vomiting. Begin eating mild foods, such as dry toast, yogurt, applesauce, bananas, and rice. Avoid spicy, hot, or high-fat foods, and do not drink alcohol or caffeine for a day or two. Do not drink milk or eat ice cream until you are feeling better. Advance diet slowly as tolerated. - ondansetron ODT (Zofran-ODT) 8 MG disintegrating tablet; Take 1 tablet (8 mg) by mouth every 8 (eight) hours if needed for nausea or vomiting for up to 5 days Dispense: 15 tablet; Refill: 0 documented in this encounter [facility] Evaluation note 10-25-2022 Note Date & Type Note Facility 10-25-2022 Evaluation note Encounter Date Diagnosis Assessment [...] understanding and is agreeable to treatment plan. [facility] Other Evaluation note 02-27-2022 Note Date & Type Note Facility 02-27-2022 Evaluation note Encounter Date Diagnosis Assessment Notes Feb, Plantar fasciitis of right foot [...] no improvement in 2 to 3 days. [facility] Other Evaluation note Note Date & Type Note Facility Evaluation note No assessment information availa [facility] Work Phone: Evaluation note Note Date & Type Note Facility Evaluation note Diagnosis Cough, unspecified type- Primary Exposure to influenza Contact with or exposure to other viral diseases Nausea and vomiting, unspecified vomiting type documented in this encounter [facility] History general Narrative - Reported Note Date & Type Note Facility History general Narrative - Reported Type Medical History IBS [facility] Other History general Narrative - Reported Note Date & Type Note Facility History general Narrative - Reported Type Medical History IBS Medical History Anxiety [facility] Other Hospital Discharge instructions Note Date & Type Note Facility Hospital Discharge instructions Additional Instructions Take the blood thinner Xarelto as prescribed until completed Follow-up with vascular surgery for monitoring of your blood clot Do not take any NSAIDs such as ibuprofen naproxen while taking the Xarelto but you can take [id number] Tylenol Return to an ER for head injury uncontrolled bleeding or any other concerns [facility] Work Phone: Reason for referral (narrative) Note Date & Type Note Facility Reason for referral (narrative) No reason for referral information available [facility] Work Phone: Summary Purpose Family History No Family History Records FoundNo Family History Records FoundNo Family History Records FoundNo Family History Records FoundNo Family History Records FoundNo Family History Records Found Advance Directives Advance Directive Response Recorded Date/ Time Advance Directives No October 19 12:29pm Advance Directive Response Recorded Date/ Time Advance Directives No October 20 3:09pm Chief Complaint and Reason for Visit Chief Complaint left leg pain Chief Complaint left leg pain ER F/U FOR DVT Chief Complaint Admit Date Cough, sore throat, congestion February 02, 2025 3:59pm Additional Source Comments INFORMATION SOURCE (unrecogn ized section and content) DATE CREATED AUTHOR 08/30/2021 [facility] DATE CREATED AUTHOR AUTHOR'S ORGANIZ ATION 10/22/2021 [facility] DATE CREATED AUTHOR AUTHOR'S ORGANIZ ATION 10/24/2023 [facility] DATE CREATED AUTHOR AUTHOR'S ORGANIZ ATION 10/31/2023 [facility] DATE CREATED AUTHOR AUTHOR'S ORGANIZ ATION [facility]/12/20[facility] DATE CREATED AUTHOR AUTHOR'S ORGANIZ ATION 09/15/2024 [facility] EPIC REASON FOR VISIT (unrecogniz ed section and content) RIGHT FOOT PAIN X1 WEEKNECK DISCOMFORT RADIATING INTO SHOULDER, NO KNOWN INJURY Care Teams (unrecognized sec tion and content) Team Status: Active Member Role Status Dates Shayy Todd Jerome Primary Care Provider Active Team Status: Inactive Member Role Status Dates Shayy L Justus Primary Care Provider Active Star t: October 20, 2023 End: October 20, 2023 ZELDA WhiteP- Emergency Provider Active Start: October 20, 2023 End: October 20, 2023 Team Status: Inactive Member Role Status Dates Shayy Todd Jerome Primary Care Provider Active Star t: November 13, 2023 End: November 13, 2023 Connor Barragan MD Attending Provider Active Start: November 13, 2023 End: November 13, 2023 Data Capture Clerk Relationship Specialty Start Date End Date Garth Olson DO [address] [id number] PCP - General Family Medicine 09/13/24 Team Status: Inactive Member Role Status Dates Shayy L Justus Primary Care Provider Active Star t: February 02, 2025 End: February 02, 2025 ENIO Sin RN SENIOR SECURITY ENGINEER-C Attending Provider Active Start: February 02 End: February 02, 2025 Goals (unrecognized section and content) Goals may [...] BE BASED ON THE PRIMARY CLINICAL RECORDS. [employer] [facility]. provides no warranty or guarantee of the accuracy or completeness of information in this document.
== END 2025-02-09 21:56 | disposition home or self-care (01) ==
PROVIDERS: Emergency Provider Internal Medicine; PCP Family Medicine
DX: S93.504A Unspecified sprain of right lesser toe(s), initial encounter (principal); W22.8XXA Striking against or struck by other objects, initial encounter
CPT/HCPCS: 73660; 99283